=== PATIENT | female | born 1955 | race Caucasian/White ===

== ENCOUNTER → 2022-05-23 | Outpatient (CLI) | payer MEDICARE, SELFPAY ==
--- NOTE | 2022-05-23 16:37 | RAD_ITS ---
INDICATION: PAIN EXAMINATION/TECHNIQUE: X-RAY - XR Spine Cervical 2 or 3 Views: AP, lateral and open-mouth odontoid views COMPARISON: None. FINDINGS: Straightening and slight reversal of cervical lordosis likely chronic and/or positional in nature. No significant spondylolisthesis. No acute fracture or suspicious osseous lesion. Vertebral body heights are preserved. Multilevel endplate osteophytes. Mild degenerative disc space narrowing at C5-6 and C6-7. Multilevel mild degenerative facet arthropathy. Scattered vascular calcifications. Previous sternotomy and CABG. Biapical lung scarring. RAD/Cerv Spine 2 or 3 Views IMPRESSION: Mild cervical spondylosis.. Electronically Signed: Micah Pang MD at 2:38 EDT ,
--- NOTE | 2022-05-23 16:40 | RAD_ITS ---
INDICATION: PAIN EXAMINATION/TECHNIQUE: X-RAY - XR Spine Lumbar 2 or 3 Views: AP and lateral views COMPARISON: None. FINDINGS: Chronic-appearing lower thoracic and L1 vertebral endplate compression deformities. Mild dextroscoliotic curvature of thoracolumbar spine. Bones are osteopenic. Chronic-appearing grade 1 anterolisthesis of L4 over L5. Multilevel degenerative facet arthropathy. Multiple metallic clips within pelvis. Chronic left pubic rami fractures. Status post left hip arthroplasty. Aortoiliac atherosclerotic calcifications present. RAD/Lumbar Spine 2 or 3 Views IMPRESSION: Chronic-appearing lower thoracic and L1 vertebral endplate compression deformities. Multilevel lumbar facet arthropathy with grade 1 spondylolisthesis L4 over L5. Mild thoracolumbar dextroscoliotic curvature. Other nonurgent findings within body of report. Electronically Signed: Micah Pang MD at 2:36 EDT ,
[2022-05-23 17:26] LABS: Amphetamine Urine VISTA NEGATIVE (<1000 ng/mL); Barbiturate Urine VISTA NEGATIVE (< 200 ng/mL); Benzodiazepine Urine VISTA NEGATIVE (< 200 ng/mL); Cocaine Urine VISTA NEGATIVE (< 300 ng/mL); Ecstacy Urine VISTA NEGATIVE (< 500 ng/mL); Methadone Urine VISTA NEGATIVE (< 300 ng/mL); PCP Urine VISTA NEGATIVE (< 25 ng/mL); THC Urine VISTA NEGATIVE (< 50 ng/mL)
[2022-05-23 17:27] LABS: Vista UDS pH Range 4
== END | disposition home or self-care (01) ==
PROVIDERS: PCP Family Medicine; Visit Provider Anesthesiology Pain Medicine
DX: M54.30 Sciatica, unspecified side (principal); F11.20 Opioid dependence, uncomplicated
CPT/HCPCS: 72040; 72100; 80307

== ENCOUNTER → 2022-07-19 | Outpatient (CLI) | payer MEDICARE, MEDICAID, SELFPAY ==
--- NOTE | 2022-07-19 15:32 | RAD_ITS ---
EXAM: XR LUMBOSACRAL SPINE, 2 OR 3 VIEWS CLINICAL INDICATION: Lumbar region intervertebral disc degeneration. TECHNIQUE: Frontal and lateral views of the lumbar spine and sacrum. This report was created using [employer] report [employer] technology. COMPARISON: None. FINDINGS: VERTEBRAE: Mild old anterior wedge compression fractures of the upper T12 and L1 vertebral bodies. Normal remaining lumbar vertebral body heights and endplates. Minimal degenerative retrolisthesis of L2 on L3. Minimal degenerative anterolisthesis of L4 on L5. No spondylolisthesis. Preservation of the normal lumbar lordosis. No significant facet arthropathy. DISC SPACES: Normal lumbar disc space heights. SOFT TISSUES: Multiple surgical clips in the pelvis. VASCULATURE: Moderate calcified plaques along the abdominal aorta. GASTROINTESTINAL TRACT: Unremarkable as visualized. Included bowel gas pattern is non-obstructive. RAD/Lumbar Spine 2 or 3 Views IMPRESSION: 1. No lumbar degenerative disc space height narrowing. 2. Old mild anterior wedge compression fractures of the upper T12 and L1 vertebral bodies. 3. Minimal degenerative retrolisthesis of L2 on L3 and minimal degenerative anterolisthesis of L4 on L5. 4. No acute osseous abnormality of the lumbar spine.. Electronically Signed: Kali De León MD at 16:32 EDT ,
--- NOTE | 2022-07-19 15:35 | RAD_ITS ---
STUDY: X-RAY - PELVIS AND RIGHT HIP REASON FOR EXAM: Female, 66 years old. Other intervertebral disc degeneration, lumbar region TECHNIQUE: 3 views of the pelvis and hip. COMPARISON: None. FINDINGS: There is a non-specific bowel gas pattern. Normal visualized soft tissue structures. Normal bilateral iliac wings, sacroiliac joints and visualized sacrum. Normal bilateral superior and inferior pubic rami. Normal pubic symphysis. Normal bilateral ischial tuberosities. Normal visualized femoral head. Normal acetabulum. Normal hip joint. RAD/HIP, UNI W/ Pelvis 2-3 Views IMPRESSION: Normal x-ray examination of the pelvis and hip. Electronically Signed: Yemi Delgadillo MD at 0:18 EDT ,
== END | disposition home or self-care (01) ==
LOC: RAD 15:31
PROVIDERS: PCP Family Medicine; Referring Provider Anesthesiology Pain Medicine; Visit Provider Anesthesiology Pain Medicine
DX: M51.36 Other intervertebral disc degeneration, lumbar region (principal)
CPT/HCPCS: 72100; 73502

== ENCOUNTER → 2023-06-30 | Outpatient (CLI) | payer MEDICARE, MEDICAID, SELFPAY ==
[2023-06-30 17:19] LABS: Amphetamine Urine VISTA NEGATIVE (<1000 ng/mL); Barbiturate Urine VISTA NEGATIVE (< 200 ng/mL); Benzodiazepine Urine VISTA NEGATIVE (< 200 ng/mL); Cocaine Urine VISTA NEGATIVE (< 300 ng/mL); Ecstacy Urine VISTA NEGATIVE (< 500 ng/mL); Methadone Urine VISTA NEGATIVE (< 300 ng/mL); PCP Urine VISTA NEGATIVE (< 25 ng/mL); THC Urine VISTA NEGATIVE (< 50 ng/mL); Vista UDS pH Range 5
== END | disposition home or self-care (01) ==
PROVIDERS: PCP Family Medicine; Referring Provider Anesthesiology Pain Medicine; Visit Provider Anesthesiology Pain Medicine
DX: F11.20 Opioid dependence, uncomplicated (principal)
CPT/HCPCS: 80307

== ENCOUNTER → 2023-11-19 | Outpatient (CLI) | payer MEDICARE, MEDICAID, SELFPAY ==
--- NOTE | 2023-11-19 17:30 | RAD_ITS ---
STUDY: X-RAY - THORACIC SPINE REASON FOR EXAM: Female, 68 years old. FALL TECHNIQUE: 3 view(s) of the thoracic spine were obtained. COMPARISON: Lumbar spine x-rays 05/23/2022. FINDINGS: There is increased kyphosis at thoracolumbar junction. There is wedging of T11, T12 and L1 suggestive of mild compression fracture, exact age indeterminate and likely old given morphology and stability since 05/23/2022 exam. Mild scoliosis of thoracolumbar spine with convexity to the right. There is demineralization of the thoracic spine with endplate spondylosis. There is multilevel disc space narrowing of the thoracic spine. Calcified atherosclerotic disease throughout the aorta. Midline sternotomy wires. RAD/Thoracic Spine 2 Views IMPRESSION: Diffuse osteopenia with degenerative disease as described. Scoliosis of thoracolumbar spine with convexity to the right. Old compression fractures T11-L1, stable in the interval. Electronically Signed: Jenny Vigil MD at 18:31 EST ,
--- OUTSIDE RECORDS SUMMARY | 2023-11-19 17:40 | XMS RPT_ITS | CCD ---
Author Name Unknown Address [address] [place] [address] Organization [facility] Care Team Providers Care Taxicab Coordinator Name Role Phone Yang Bridges Unavailable Mansfield, Robert A Unavailable Unavailable Mansfield, Robert A Unavailable Unavailable Yang Bridges Primary Care Provider [phone] Yang Bridges Primary Care Provider MANSFIELD, ROBERT ESTEBAN Attending Unavailable MANSFIELD, ROBERT ESTEBAN Referring Unavailable ELDERBROCK, YANG Primary Care Unavailable MANSFIELD, ROBERT ESTEBAN Attending Unavailable MANSFIELD, ROBERT ESTEBAN Referring Unavailable ELDERBROCK, YANG Primary Care Unavailable MANSFIELD, ROBERT ESTEBAN Attending Unavailable MANSFIELD, ROBERT ESTEBAN Referring Unavailable ELDERBROCK, YANG Primary Care Unavailable MANSFIELD, ROBERT ESTEBAN Attending Unavailable MANSFIELD, ROBERT ESTEBAN Referring Unavailable ELDERBROCK, YANG Primary Care Unavailable MANSFIELD, ROBERT ESTEBAN Attending Unavailable MANSFIELD, ROBERT ESTEBAN Referring Unavailable ELDERBROCK, YANG Primary Care Unavailable MANSFIELD, ROBERT ESTEBAN Attending Unavailable MANSFIELD, ROBERT ESTEBAN Referring Unavailable ELDERBROCK, YANG Primary Care Unavailable Hal Hayden Unavailable Unavailable None, No PCP Unavailable Unavailable Hal Hayden Unavailable Unavailable Yang Bridges Unavailable Tomer Riojas Unavailable Unavailabl e Yang Bridges MD Primary Care Provider Og Fry MD Unavailable [phone] Yang Bridges MD Primary Care Provider Fry MD, Og Francisco Javier Unavailable [phone] Herminia Lowry RN Unavailable Unavailable Cyrus MOHAN, Yang Primary Care Provider Josh Valentin I Unavailable Unavailable Cyrus MOHAN, Yang Vega Primary Care Provider Herminia Lowry RN Unavailable Unavailable ELDERBROCK, YANG Primary Care Unavailable HERMINIA FISHER Referring Unavailable HERMINIA FISHER Attending Unavailable Eliana Casillas RN Unavailable Unavailable Cyrus MOHAN, Yang Vega Primary Care Provider Lisandra MOHAN, Og Francisco Javier Unavailable [phone] Eliana Casillas RN Unavailable Unavailable Herminia Lowry RN Unavailable Unavailable Hollis Servin W Unavailable Timothy Correia Unavailable Eliana Casillas RN Unavailable Unavailable Yang Bridges MD Primary Care Provider Timothy Correia Attending Unavailable Elderbrock, Yang Wong Primary Care Unavaila ble ELDERBROCK, YANG Primary Care Unavailable HERMINIA FISHER Attending Unavailable HERMINIA FISHER Admitting Unavailable FISHERHERMINIA TAN Referring Unavailable ELDERBROCK, YANG Primary Care Unavailable FISHERHERMINIA CHOE Admitting Unavailable FISHERHERMINIA TAN Referring Unavailable ELDERBROCK, YANG Primary Care Unavailable FISHERHERMINIA CHOE Admitting Unavailable FISHERHERMINIA TAN Referring Unavailable ELDERBROCK, YANG Primary Care Unavailable FISHERHERMINIA TAN Attending Unavailable ELDERBROCK, YANG Primary Care Unavailable ROBERT MANSFIELD Attending Unavailable ELDERBROCK, YANG Primary Care Unavailable FISHERHERMINIA Attending Unavailable ELDERBROCK, YANG Primary Care Unavailable FISHERHERMINIA TAN Admitting Unavailable FISHERHERMINIA Referring Unavailable ELDERBROCK, YANG Primary Care Unavailable FISHERHERMINIA TAN Attending Unavailable ELDERBROCK, YANG Primary Care Unavailable FISHERHERMINIA TAN Admitting Unavailable ELDERBROCK, YANG Primary Care Unavailable FISHERHERMINIA Referring Unavailable ELDERBROCK, YANG Primary Care Unavailable FISHERHERMINIA TAN Attending Unavailable FISHER, HERMINIA WESTFALL Admitting Unavailable FISHER, HERMINIA WESTFALL Referring Unavailable ELDERBROCK, YANG Primary Care Unavailable FISHER, HERMINIA WESTFALL Attending Unavailable ELDERBROCK, YANG Primary Care Unavailable MANSFIELD, ROBERT ORELLANA Attending Unavailable MANSFIELD, ROBERT ORELLANA Admitting Unavailable ELDERBROCK, YANG Primary Care Unavailable FISHER, HERMINIA WESTFALL Admitting Unavailable FISHER, HERMINIA WESTFALL Referring Unavailable ELDERBROCK, YANG Primary Care Unavailable ELDERBROCK, YANG Primary Care Unavailable FISHER, HERMINIA WESTFALL Attending Unavailable FISHER, HERMINIA WESTFALL Admitting Unavailable FISHER, HERMINIA WESTFALL Referring Unavailable ELDERBROCK, YANG Primary Care Unavailable Mendez, Dr. Raymond Morgan Referring Unavai lable Elderbrock, Dr. Yang Wong Primary Care Unav ailable Andrea, Dr. Raymond Morgan Admitting Unavai lable Mendez, Dr. Raymond Morgan Attending Unavai lable Mendez, Dr. Raymond Morgan Attending Unavai lable Mendez, Dr. Raymond Morgan Referring Unavai lable Elderbrock, Dr. Yang Wong Primary Care Unav ailable Andrea, Dr. Raymond Morgan Admitting Unavai lable Elderbrock, Dr. Yang Wong Primary Care Unav ailable MOOMAW, RESERVOIR ENGINEERING MANAGER JOSH KELLI Attending Unavailable Elderbrock, Dr. Yang Wong Primary Care Unav ailable Malathi, Dr. Hollis Whelan Attending Unavail able Elderbrock, Dr. Yang Wong Primary Care Unav ailable Harish, Dr. Yemi Vega Attending Unavaila ble Fredi Perez Unavailable Dawood RN, Crystal Unavailable Fredi Perez Unavailable Dawood MARC, Crystal Unavailable Fredi Perez MD Unavailable Belinda Lama MD Unavailable Robert MARC, Janelle Unavailable Unavailable YANG BRIDGES Attending Unavailable YANG BRIDGES Primary Care Unavailable BELINDA LAMA Attending Unavailable YANG BRIDGES Primary Care Unavailable BELINDA LAMA Referring Unavailable YANG BRIDGES Primary Care Unavailable MENDEZ, RAYMOND K Referring Unavailable DAMARIS MENDEZINDER K Attending Unavailable YANG BRIDGES Primary Care Unavailable MENDEZ, RAYMOND K Referring Unavailable RAYMOND MENDEZ K Attending Unavailable YANG BRIDGES Attending Unavailable YANG BRIDGES Primary Care Unavailable BELINDA LAMA Attending Unavailable YANG BRIDGES Primary Care Unavailable ANDREA, RAYMOND K Referring Unavailable RAYMOND MENDEZ K Attending Unavailable YANG BRIDGES Primary Care Unavailable YANG BRIDGES Primary Care Unavailable YANG BRIDGES Referring Unavailable Allergies Allergy Classification Reported Allergen(s) Allergy Type Date of Onset Reaction(s) Facility Macrolides (antibiotic) (2 sources) Erythromycin Drug Allergy Swelling/Edema [facility] Penicillins (antibiotic) (2 sources) Penicillin Drug Allergy Rash [facility] (20 sources) azithromycin; Translations: [AZITHROMYCIN] Propensity to adverse reactions to drug 6 [facility] Work Phone: (20 sources) erythromycin; Translations: [ERYTHROMYCIN] Propensity to adverse reactions to drug 7 Hives [facility] Work Phone: (20 sources) Penicillins; Translations: [PENICILLINS] Propensity to adverse reactions to drug 7 [facility] Work Phone: (4 sources) Penicillins; Translations: [Penicillins] Allergy to drug (finding) Rash [facility] [address] Work Phone: (2 sources) Erythromycin Derivatives Allergy to drug (finding) [facility] [address] Work Phone: (20 sources) Penicillins Propensity to adverse reactions 7 [facility] (20 sources) Penicillins Propensity to adverse reactions 7 [facility] Medications Current Medications Medication Drug Class(es) Dates Sig (Normalized) Sig (Original) acetaminophen 325 mg / oxyCODONE hydrochloride 10 mg oral tablet (4 sources) Opioid Agonist Start: 11-20-2015 oxyCODONE-acetamino phen (PERCOCET) 10-325 mg per tablet ascorbic acid 250 mg oral tablet (6 sources) Vitamin C take 1 tablet by mouth once daily Vitamin C 250 mg oral tablet ; 1 tab(s) orally once a day Quantity: 0 Refills: 0 Ordered: 02-Oct-2020 Ethel Strickland Generic Substitution Allowed Completed/Discontinued Medications Medication Drug Class(es) Dates Sig (Normalized) Sig (Original) 60 actuat albuterol 0.09 mg/actuat metered dose inhaler (2 sources) beta2-Adrenergic Agonist Albuterol Sulfate HFA 108 MCG/ACT AERS Refills: 0 Active alendronic acid 70 mg oral tablet (20 sources) Bisphosphonate Start: 05-12-2023 alendronate (FOSAMAX) 70 mg tablet Indications: Osteoporosis without current pathological fracture, unspecified osteoporosis type TAKE 1 TABLET ONE TIME WEEKLY 12 tablet 3 05/12/2023 Active Problems Active Problems Problem Classification Problem Date Documented Date Episodic/Chronic Anxiety disorders (20 sources) Anxiety state; Translations: [Generalized anxiety disorder] Onset: 07-28-2007 11-05-2021 Chronic Cancer of breast (20 sources) Intraductal carcinoma in situ of left breast; Translations: [Intraductal carcinoma in situ of left breast] Onset: 02-07-2022 Chronic Cancer of breast (2 sources) Personal history of malignant neoplasm of breast; Translations: [History of malignant neoplasm of breast] Onset: 10-31-2022 09-10-2023 Episodic Cancer of cervix (20 sources) Malignant tumor of cervix; Translations: [Malignant neoplasm of cervix uteri, unspecified] 11-05-2021 Chronic Cataract (20 sources) Senile combined form cataract of right eye; Translations: [Combined forms of age-related cataract, right eye] Onset: 07-08-2022 Chronic Chronic obstructive pulmonary disease and bronchiectasis (20 sources) Chronic obstructive lung disease; Translations: [Chronic obstructive pulmonary disease, unspecified] Onset: 12-02-2020 Chronic Complication of device; implant or graft (20 sources) Arteriosclerosis of coronary artery bypass graft; Translations: [Atherosclerosis of coronary artery bypass graft(s) without angina pectoris] Onset: 04-28-2016 04-28-2016 Chronic Complication of device; implant or graft (1 source) Periprosthetic fracture; Translations: [Rashida-prosthetic fracture around prosthetic joint] 07-29-2022 Episodic Coronary atherosclerosis and other heart disease (20 sources) Coronary atherosclerosis; Translations: [Atherosclerotic heart disease of [place] coronary artery without angina pectoris] Onset: 12-02-2011 Chronic Disorders of lipid metabolism (20 sources) Hyperlipidemia; Translations: [Hyperlipidemia, unspecified] Onset: 12-07-2011 Chronic E Codes: Fall (5 sources) Fall 06-06-2021 Past or Other Problems Problem Classification Problem Date Documented Da te Episodic/Chronic Abdominal pain (2 sources) Unspecified abdominal pain; Translations: [Unspecified abdominal pain] Onset: 10-14-2022 Episodic Allergic reactions (2 sources) Inflammatory dermatosis; Translations: [Dermatitis, unspecified] Onset: 10-31-2022 Episodic Blindness and vision defects (20 sources) Visual field defect; Translations: [Unspecified visual field defects] Onset: 07-26-2022 Episodic Cancer of cervix (1 source) Personal history of malignant neoplasm of cervix uteri; Translations: [Personal history of malignant neoplasm of cervix uteri] Onset: 07-25-2022 Episodic Cancer of uterus (1 source) Personal history of malignant neoplasm of other parts of uterus; Translations: [Personal history of malignant neoplasm of oth prt uterus] Onset: 10-31-2022 Episodic Complications of surgical procedures or medical care (1 source) Periprosthetic fracture around internal prosthetic left hip joint, initial encounter; Translations: [Periprosth fracture around internal prosth l hip jt, init] Onset: 07-29-2022 Episodic Coronary atherosclerosis and other heart disease (1 source) Presence of coronary angioplasty implant and graft; Translations: [Presence of coronary angioplasty implant and graft] Onset: 10-31-2022 Episodic E Codes: Fall (2 sources) Fall; Translations: [Unspecified fall] Onset: 07-29-2022 06-07-2021 Episodic Fluid and electrolyte disorders (1 source) Hypokalemia; Translations: [Hypokalemia] Onset: 09-25-2022 Episodic Fracture of lower limb (20 sources) Closed fracture of tibial plateau; Translations: [Closed fracture proximal tibia, medial condyle (plateau) ] Onset: 12-02-2020 11-30-2021 Episodic Fracture of neck of femur (hip) (6 sources) Fracture of proximal end of femur; Translations: [Fracture of unspecified part of neck of left femur, initial encounter for closed fracture] Onset: 09-11-2022 Episodic Nutritional deficiencies (20 sources) Alteration in nutrition: less than body requirements; Translations: [Other specified nutritional deficiencies] Onset: 11-05-2011 Episodic Other aftercare (2 sources) Encounter for follow-up examination after completed treatment for conditions other than malignant neoplasm; Translations: [Encounter for follow-up examination after completed treatment for conditions other than malignant neoplasm] Onset: 09-11-2022 Episodic Other aftercare (1 source) snf (current) use of aspirin; Translations: [snf (current) use of aspirin] Onset: 10-31-2022 Episodic Other aftercare (1 source) Other terminal make up operator (current) drug therapy; Translations: [Other nursing home (current) drug therapy] Onset: 10-14-2022 Episodic Other connective tissue disease (5 sources) Pain in upper limb; Translations: [Pain in right upper arm] Onset: 03-07-2017 03-07-2017 Episodic Other connective tissue disease (4 sources) Pain in right arm; Translations: [Pain in right upper arm] Onset: 03-07-2017 03-07-2017 Episodic Other connective tissue disease (20 sources) Pain in right upper arm; Translations: [Pain of right upper arm] Onset: 03-07-2017 03-07-2017 Episodic Other connective tissue disease (20 sources) Muscle pain; Translations: [Myalgia and myositis, unspecified] Onset: 09-21-2008 12-06-2011 Episodic Other connective tissue disease (20 sources) Ischial bursitis ; Translations: [Other bursitis of hip, unspecified hip] Onset: 01-27-2014 01-27-2014 Episodic Other connective tissue disease (20 sources) Pain in buttock; Translations: [Myalgia, other site] Onset: 01-27-2014 01-27-2014 Episodic Other connective tissue disease (20 sources) Right rotator cuff syndrome; Translations: [Unspecified rotator cuff tear or rupture of right shoulder, not specified as traumatic] Onset: 08-28-2015 08-28-2015 Episodic Other connective tissue disease (20 sources) Biceps tendinitis; Translations: [Bicipital tendinitis, right shoulder] Onset: 08-28-2015 08-28-2015 Episodic Other connective tissue disease (1 source) Fibromyalgia; Translations: [Fibromyalgia] Onset: 10-31-2022 Episodic Other connective tissue disease (2 sources) Cramp and spasm; Translations: [Cramp and spasm] Onset: 09-25-2022 Episodic Other eye disorders (20 sources) Tear film insufficiency; Translations: [Dry eye syndrome of bilateral lacrimal glands] Onset: 07-08-2022 Episodic Other eye disorders (20 sources) H/O: L cataract extraction; Translations: [Cataract extraction status, left eye] Onset: 07-26-2022 Episodic Other eye disorders (20 sources) H/O: R cataract extraction; Translations: [Cataract extraction status, right eye] Onset: 11-01-2022 Episodic Other gastrointestinal disorders (2 sources) Diarrhea, unspecified; Translations: [Diarrhea, unspecified] Onset: 10-14-2022 Episodic Other injuries and conditions due to external causes (20 sources) Finding with explicit context; Translations: [Personal history of other (healed) physical injury and trauma] Onset: 07-26-2022 Episodic Other non-traumatic joint disorders (20 sources) Pain in elbow; Translations: [Pain in left ankle and joints of left foot] Onset: 09-04-2016 09-04-2016 Episodic Other non-traumatic joint disorders (20 sources) Pain in left ankle and joints of left foot; Translations: [Acute ankle pain] Onset: 02-04-2018 02-04-2018 Episodic Other non-traumatic joint disorders (20 sources) Shoulder pain; Translations: [Pain in right shoulder] Onset: 09-04-2016 09-04-2016 Episodic Other non-traumatic joint disorders (15 sources) Pain in right shoulder; Translations: [Chronic pain of right upper limb] Onset: 09-16-2017 09-16-2017 Episodic Other non-traumatic joint disorders (1 source) Pain in left hip; Translations: [Pain in left hip] Onset: 07-29-2022 Episodic Other screening for suspected conditions (not mental disorders or infectious disease) (20 sources) Patient encounter status; Translations: [Encounter for screening for malignant neoplasm of colon] Onset: 03-11-2018 03-11-2018 Episodic Rashida-; endo-; and myocarditis; cardiomyopathy (except that caused by tuberculosis or sexually transmitted disease) (20 sources) Pericarditis; Translations: [Disease of pericardium, unspecified] Onset: 03-17-2012 03-17-2012 Episodic Residual codes; unclassified (20 sources) Tobacco user; Translations: [Tobacco use] Onset: 02-07-2022 Episodic Residual codes; unclassified (1 source) Acquired absence of unspecified breast and nipple; Translations: [Acquired absence of unspecified breast and nipple] Onset: 10-31-2022 Episodic Residual codes; unclassified (2 sources) Chills (without fever); Translations: [Chills (without fever)] Onset: 09-25-2022 Episodic Screening and history of mental health and substance abuse codes (20 sources) H/O: anxiety state; Translations: [H/O: depression] Onset: 11-30-2021 11-30-2021 Episodic Spondylosis; intervertebral disc disorders; other back problems (20 sources) Neck pain; Translations: [Lumbosacral neuritis] Onset: 01-27-2014 09-04-2016 Episodic Sprains and strains (20 sources) Sprain of unspecified ligament of right ankle, initial encounter; Translations: [Sprain of shoulder rotator cuff] Onset: 06-25-2013 02-04-2018 Episodic Unclassified (1 source) Tear of right rotator cuff, unspecified tear extent NEGATED: Highlighted row has not occurred!Residual codes; unclassified (3 sources) Disease Episodic Results Test Name Value Interpretation Reference Range Facil ity Vital Signs Date Time Vital Sign Value Performing Clinician Facility 09-22-2023 15:15-0500 Body weight 43.09 kg Yang Bridges MD Work Phone: [facility] 09-22-2023 15:15-0500 Diastolic blood pressure 72 mm[Hg] Yang Bridges MD Work Phone: [facility] 09-22-2023 15:15-0500 Heart rate 70 /min Yang Bridges MD Work Phone: [facility] 09-22-2023 15:15-0500 Respiratory rate 18 /min Yang Bridges MD Work Phone: [facility] 09-22-2023 15:15-0500 Systolic blood pressure 126 mm[Hg] Yang Bridges MD Work Phone: [facility] 09-10-2023 10:02-0400 Body height 160 cm Belinda Lama MD Work Phone: [facility] 09-10-2023 10:02-0400 Body temperature 98.91 [degF] Belinda Lama MD Work Phone: [facility] 09-10-2023 10:02-0400 Body weight 44.45 kg Belinda Lama MD Work Phone: [facility] 09-10-2023 10:02-0400 Diastolic blood pressure 69 mm[Hg] Belinda Lama MD Work Phone: [facility] 09-10-2023 10:02-0400 Heart rate 60 /min Belinda Lama MD Work Phone: [facility] 09-10-2023 10:02-0400 Respiratory rate 14 /min Belinda Lama MD Work Phone: [facility] 09-10-2023 10:02-0400 SaO2% (BldA) [Mass fraction] 99 % Belinda Lama MD Work Phone: [facility] 09-10-2023 10:02-0400 Systolic blood pressure 144 mm[Hg] Belinda Lama MD Work Phone: [facility] 04-29-2023 15:36-0400 Body height 160 cm Yang Bridges MD Work Phone: [facility] 04-29-2023 15:36-0400 Body weight 47.54 kg Yang Bridges MD Work Phone: [facility] 04-29-2023 15:36-0400 Diastolic blood pressure 76 mm[Hg] Yang Bridges MD Work Phone: [facility] 04-29-2023 15:36-0400 Heart rate 72 /min Yang Bridges MD Work Phone: [facility] 04-29-2023 15:36-0400 Respiratory rate 16 /min Yang Bridges MD Work Phone: [facility] 04-29-2023 15:36-0400 Systolic blood pressure 128 mm[Hg] Yang Bridges MD Work Phone: [facility] 03-10-2023 16:10-0400 Body temperature 97.11 [degF] Belinda Lama MD Work Phone: [facility] 03-10-2023 16:10-0400 Body weight 46.86 kg Belinda Lama MD Work Phone: [facility] 03-10-2023 16:10-0400 Diastolic blood pressure 60 mm[Hg] Belinda Lama MD Work Phone: [facility] 03-10-2023 16:10-0400 Heart rate 66 /min Belinda Lama MD Work Phone: [facility] 03-10-2023 16:10-0400 Respiratory rate 18 /min Belinda Lama MD Work Phone: [facility] 03-10-2023 16:10-0400 SaO2% (BldA) [Mass fraction] 99 % Belinda Lama MD Work Phone: [facility] 03-10-2023 16:10-0400 Systolic blood pressure 124 mm[Hg] Belinda Lama MD Work Phone: [facility] 10-22-2022 13:19-0500 Diastolic blood pressure 65 mm[Hg] Raymond Mendez MD Work Phone: [facility] 10-22-2022 13:19-0500 Heart rate 52 /min Raymond Mendez MD Work Phone: [facility] 10-22-2022 13:19-0500 Systolic blood pressure 99 mm[Hg] Raymond Mendez MD Work Phone: [facility] 10-14-2022 23:57-0500 Diastolic blood pressure 68 mm[Hg] Yang Bridges Other Phone: [facility] 10-14-2022 23:57-0500 Heart rate 87 /min Yang Bridges Other Phone: [facility] 10-14-2022 23:57-0500 Respiratory rate 17 /min Yang Bridges Other Phone: [facility] 10-14-2022 23:57-0500 SaO2% (BldA) [Mass fraction] 95 % Yang Bridges Other Phone: [facility] 10-14-2022 23:57-0500 Systolic blood pressure 112 mm[Hg] Yang Bridges Other Phone: [facility] 10-14-2022 20:25-0500 Body height 162.5 cm Yang Bridges Other Phone: [facility] 10-14-2022 20:25-0500 Body weight 43.9 kg Yang Bridges Other Phone: [facility] 08-21-2022 15:44-0400 Body height 160 cm Belinda Lama MD Work Phone: [facility] 08-21-2022 15:44-0400 Body temperature 98.01 [degF] Belinda Lama MD Work Phone: [facility] 08-21-2022 15:44-0400 Body weight 46.45 kg Belinda Lama MD Work Phone: [facility] 08-21-2022 15:44-0400 Diastolic blood pressure 54 mm[Hg] Belinda Lama MD Work Phone: [facility] 08-21-2022 15:44-0400 Heart rate 52 /min Belidna Lama MD Work Phone: [facility] 08-21-2022 15:44-0400 Respiratory rate 20 /min Belinda Lama MD Work Phone: [facility] 08-21-2022 15:44-0400 SaO2% (BldA) [Mass fraction] 99 % Belinda Lama MD Work Phone: [facility] 08-21-2022 15:44-0400 Systolic blood pressure 103 mm[Hg] Belinda Lama MD Work Phone: [facility] 07-31-2022 09:22-0400 Body height 163.8 cm Herminia Fisher CNP Work Phone: [facility] 07-31-2022 09:22-0400 Body mass index (BMI) [Ratio] 18.25 kg/m2 Herminia Fisher RESERVOIR ENGINEERING MANAGER Work Phone: [facility] 07-31-2022 09:22-0400 Body weight 48.99 kg Herminia Fisher RESERVOIR ENGINEERING MANAGER Work Phone: [facility] 07-26-2022 16:20-0400 Diastolic blood pressure 65 mm[Hg] Raymond Mendez MD Work Phone: [facility] 07-26-2022 16:20-0400 Heart rate 52 /min Raymond Mendez MD Work Phone: [facility] 07-26-2022 16:20-0400 Systolic blood pressure 99 mm[Hg] Raymond Mendez MD Work Phone: [facility] 07-22-2022 14:08-0400 Diastolic blood pressure 65 mm[Hg] Raymond Mendez MD Work Phone: [facility] 07-22-2022 14:08-0400 Heart rate 52 /min Raymond Mendez MD Work Phone: [facility] 07-22-2022 14:08-0400 Systolic blood pressure 99 mm[Hg] Raymond Mendez MD Work Phone: [facility] 07-08-2022 13:29-0400 Diastolic blood pressure 65 mm[Hg] Raymond Mendez MD Work Phone: [facility] 07-08-2022 13:29-0400 Heart rate 52 /min Raymond Mendez MD Work Phone: [facility] 07-08-2022 13:29-0400 Systolic blood pressure 99 mm[Hg] Raymond Mendez MD Work Phone: [facility] 06-26-2022 14:06-0400 Body height 163.8 cm Robert Mansfield MD Work Phone: [facility] 06-26-2022 14:06-0400 Body mass index (BMI) [Ratio] 18.25 kg/m2 Robert Mansfield MD Work Phone: [facility] 06-26-2022 14:06-0400 Body weight 48.99 kg Robert Mansfield MD Work Phone: [facility] 06-26-2022 14:06-0400 Diastolic blood pressure 60 mm[Hg] Robert Mansfield MD Work Phone: [facility] 06-26-2022 14:06-0400 Heart rate 60 /min Robert Mansfield MD Work Phone: [facility] 06-26-2022 14:06-0400 SaO2% (BldA) [Mass fraction] 91 % Robert Mansfield MD Work Phone: [facility] 06-26-2022 14:06-0400 Systolic blood pressure 104 mm[Hg] Robert Mansfield MD Work Phone: [facility] 04-23-2022 16:23-0400 Body weight 47.13 kg Yang Bridges MD Work Phone: [facility] 04-23-2022 16:23-0400 Diastolic blood pressure 60 mm[Hg] Yang Bridges MD Work Phone: [facility] 04-23-2022 16:23-0400 Heart rate 74 /min Yang Bridges MD Work Phone: [facility] 04-23-2022 16:23-0400 Respiratory rate 16 /min Yang Bridges MD Work Phone: [facility] 04-23-2022 16:23-0400 Systolic blood pressure 90 mm[Hg] Yang Bridges MD Work Phone: [facility] 02-28-2022 13:25-0400 Body temperature 98.4 [degF] Belinda Lama MD Work Phone: [facility] 02-28-2022 13:25-0400 Diastolic blood pressure 69 mm[Hg] Belinda Lama MD Work Phone: [facility] 02-28-2022 13:25-0400 Heart rate 108 /min Belinda Lama MD Work Phone: [facility] 02-28-2022 13:25-0400 Respiratory rate 20 /min Belinda Lama MD Work Phone: [facility] 02-28-2022 13:25-0400 SaO2% (BldA) [Mass fraction] 98 % Belinda Lama MD Work Phone: [facility] 02-28-2022 13:25-0400 Systolic blood pressure 134 mm[Hg] Belinda Lama MD Work Phone: [facility] 02-07-2022 13:36-0400 Body height 162.6 cm Pacc 4 Work Phone: [facility] 02-07-2022 13:36-0400 Body temperature 98.49 [degF] Pacc 4 Work Phone: [facility] 02-07-2022 13:36-0400 Body weight 49.08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 [J44.9] Order(s):PT ED PULMONARY [[id number]] Order #: [id number]: 1 Prescriptions as of 11/19/2022 - moxifloxacin (VIGAMOX) 0.5 % ophthalmic solution Use 1 Drop in the right eye four times daily. - keTORolac (ACULAR) 0.5 % ophthalmic solution Use 1 Drop in the right eye four times daily. - prednisoLONE acetate (PRED FORTE) 1 % ophthalmic suspension Use 1 Drop in the right eye four times daily. - omeprazole (PRILOSEC) 20 mg capsule Take 1 capsule by mouth once daily. - doxepin capsule 25 mg Take 1 capsule by mouth daily at bedtime. - baclofen (LIORESAL) 10 mg tablet Take 1 tablet by mouth three times daily as needed (muscle spasms). - sertraline (ZOLOFT) 100 mg tablet Take 1 tablet by mouth once daily. - lisinopril 2.5 mg tablet Take 1 tablet by mouth once daily. - rOPINIRole (REQUIP) 0.5 mg tablet Take 1 tablet by mouth daily at bedtime. - alendronate (FOSAMAX) 70 mg tablet TAKE 1 TABLET ONE TIME WEEKLY - oxyCODONE IR (ROXICODONE) 5 mg immediate release tablet Take 1 tablet by mouth every 8 hours as needed for pain. - oxyCODONE IR (ROXICODONE) 5 mg immediate release tablet Take 1 tablet by mouth once daily as needed for pain for up to 30 days. Do not start before February 07, 2022. - pregabalin (LYRICA) 75 mg capsule Take one pill at night for one week, then add one pill in the morning for one week, then take on pill 3 times per day thereafter - fentaNYL (DURAGESIC) 50 mcg/hr Apply 1 Patch as directed every 72 hours for 30 days. Do not start before March 09, 2022. - fentaNYL (DURAGESIC) 50 mcg/hr Apply 1 Patch as directed every 72 hours for 30 days. Do not start before February 07, 2022. - gabapentin (NEURONTIN) 600 mg tablet Take 1 pill 3 times per day - oxyCODONE IR (ROXICODONE) 5 mg immediate release tablet Take 1 tablet by mouth twice daily as needed for pain for up to 30 days. Do not start before January 06, 2022. - oxyCODONE IR (ROXICODONE) 5 mg immediate release (more content not included)... [facility] 11-19-2022 Note HNO ID: [id number] Author: Eliana Casillas RN Service: ? Author Type: Registered Nurse Type: Progress Notes Filed: 11/19/2022 1:29 PM Note Text: [facility] TELEPHONIC OUTREACH Provider Action/FYI: Next PCP Visit: TBD at later date per patient's request ADLs, Fall Risk Assessment AND Goal updated COPD JACLYN sent Healthy at Home [employer] message sent Contact made with patient: Yes Patient identified by name and . Discussed care with patient It?s nice talking to you again. As a reminder, this is our check-in where I will be asking you questions about your health. This will only take a few minutes of your time. Is this a good time? Yes Symptoms What Chronic Disease(s) does the patient have: COPD Do you check your blood pressures at home? No Do you have new or worse shortness of breath with activity? No Do you have new or worsening cough? No Do you have new or worsening wheezing? No Do you need to use your rescue (Albuterol) inhaler or nebulizer more often than normal? No Are you having any other symptoms that your PCP needs to know about? No Symptoms: none Symptom Escalation JACLYN Education Ordered -: Yes - COPD The patient required an escalation for symptom(s)? No Medications Do you have any questions about taking your medication or which medications you should be on? No Do you need any medication refills at this time, including any of the medications you might take only when needed? No Social We would like to make sure you have what you need so that your basic needs are met- including your personal safety, food, housing and medications? Would you like to speak with a social work service team leader to help give you support for any of these needs? No It can be normal to feel anxious or down during a time like this. Would you like to talk to a mental health professional about how you have been feeling? No Closing Thank you for taking the time to talk with me today. We want to work with you to ensure that we are keeping your medical condition(s) well-controlled and to keep you healthy and out of the doctor's office or hospital. It?s also not too late for me to sign you up for automated weekly questionnaires through [employer]. This is an easy way for us to stay connected each week. Are you interested? No WANDA BtucherN, BA, whip operatorBusiness Objects Developer November 19, 2022 1:28 PM [facility] 11-19-2022 History of Present illness Narrative [facility] [address] [facility] [address] [facility] [id number] Maricel Azar returns to the office today for left elbow pain. A little over a week ago the patient had a fall, landing directly on the left elbow. She reports continued pain as well as bruising from the elbow down to her wrist. She also reports some decreased range of motion mostly due to pain. She has been trying to use the right arm to help the left wrist. She denies any numbness or tingling down the arm into the hands or the fingers. She states she did not plan on coming in for further evaluation but thought she should considering she has not had much improvement with her pain. The patient's past medical history, surgical history, social history, family history, medications and allergies were reviewed with the patient today and are available in the chart for further review. Allergies Allergen Reactions Azithromycin Erythromycin Penicillins Current Outpatient Medications: alendronate (FOSAMAX) 70 MG tablet, Take 1 tablet by mouth 1 time weekly, Disp: , Rfl: 11 aspirin 81 MG EC tablet, Take 2 (two) tablets (162 mg total) by mouth daily ., Disp: , Rfl: baclofen (LIORESAL) 10 MG tablet, Take 1 (one) tablet (10 mg total) by mouth 3 (three) times a day ., Disp: , Rfl: biotin 5 mg Tab, Take by mouth ., Disp: , Rfl: cephALEXin (KEFLEX) 500 MG capsule, Take 1 (one) capsule (500 mg total) by mouth 3 (three) times a day ., Disp: , Rfl: cholecalciferol, vitamin D3, 50 mcg (2,000 unit) cap, Take by mouth ., Disp: , Rfl: cyanocobalamin (B-12) 500 MCG tablet, Take by mouth ., Disp: , Rfl: cyclobenzaprine (FLEXERIL) 10 MG tablet, TAKE 1 TABLET BY MOUTH AT BEDTIME NEEDED for muscle spasm, Disp: , Rfl: doxepin (SINEQUAN) 10 MG capsule, Take 1 (one) capsule (10 mg total) by mouth at bedtime ., Disp: , Rfl: fentaNYL (DURAGESIC) 75 mcg/hr patch, Place 1 (one) patch on the skin ., Disp: , Rfl: gabapentin (NEURONTIN) 300 MG capsule, Take 1 (one) capsule (300 mg total) by mouth 3 (three) times a day ., Disp: , Rfl: ibuprofen (ADVIL,MOTRIN) 800 MG tablet, Take 1 (one) tablet (800 mg total) by mouth every 6 (six) hours as needed for pain ., Disp: 30 tablet, Rfl: 0 lisinopril (PRINIVIL,ZESTRIL) 2.5 MG tablet, TAKE 1 TABLET BY MOUTH EVERY DAY, Disp: , Rfl: meloxicam (MOBIC) 7.5 MG tablet, Take 1 (one) tablet (7.5 mg total) by mouth daily ., Disp: 30 tablet, Rfl: 11 meloxicam (MOBIC) 7.5 MG tablet, Take 1 (one) tablet (7.5 mg total) by mouth daily ., Disp: 30 tablet, Rfl: 11 oxyCODONE (ROXICODONE) 10 MG Tab, Take 1 (one) tablet (10 mg total) by mouth every 6 (six) hours as needed ., Disp: , Rfl: pregabalin (LYRICA) 75 MG capsule, Take one pill at night for one week, then add one pill in the morning for one week, then take on pill 3 times per day thereafter, Disp: , Rfl: rOPINIRole (REQUIP) 0.5 MG tablet, TAKE 1 TABLET BY MOUTH DAILY AT BEDTIME as needed for restless legs., Disp: , Rfl: sertraline (ZOLOFT) 100 MG tablet, Take 2 (two) tablets (200 mg total) by mouth daily ., Disp: , Rfl: 5 traMADoL (ULTRAM) 50 mg tablet, Take 1 (one) tablet to 2 (two) tablets (50-100 mg total) by mouth every 6 (six) hours as needed for pain ., Disp: , Rfl: traZODone (DESYREL) 50 MG tablet, Take 1 (one) tablet (50 mg total) by mouth nightly ., Disp: , Rfl: Past Medical History: Diagnosis Date Aortic stenosis Breast cancer (HCC) Cancer (HCC) cervical COPD (chronic obstructive pulmonary disease) (HCC) Coronary artery disease Hemiplegia (HCC) left side Hypertension Systolic murmur grade 2/6 Past Surgical History: Procedure Laterality Date AORTIC VALVE REPLACEMENT CARDIAC CATHETERIZATION 11/28/2011 No EF reported, cath was done in [place], [place] CORONARY ARTERY BYPASS GRAFT 12/02/2011 x1 CORONARY STENT PLACEMENT MASTECTOMY SHOULDER SURGERY Right TOTAL SHOULDER ARTHROPLASTY Right Social History Socioeconomic History Marital status: Tobacco Use Smoking status: Every Day Types: Cigarettes Smokeless tobacco: Never Tobacco comments: 2-3 cigs a week Vaping Use Vaping Use: Never used Substance and Sexual Activity Alcohol use: No Drug use: No ROS: Review of Systems Musculoskeletal: Positive for arthralgias, joint swelling and myalgias. ORTHO: Left Elbow Exam Tenderness The patient is experiencing tenderness in the olecranon fossa, radial head and radial capitellar joint. Range of Motion Extension: -20 Flexion: 110 Other Erythema: absent Sensation: normal Pulse: present Comments: Ecchymosis from elbow to left wrist Imaging: Left elbow: Fracture of the olecranon. Small joint effusion with soft tissue swelling. Assessment/Plan: After examination and reviewing the patient x-ray images I am going to keep her immobilized, to maintain a 90 degree angle of that elbow and I will see her back in 2 weeks for repeat imaging. She is to continue with either her OTC pain medications or her prescribed pain medications as needed. She does verbalize understanding and is in agreement the treatment plan. documented in this encounter [facility] 11-19-2022 History of Present illness Narrative [facility] TELEPHONIC OUTREACH Provider Action/FYI: Next PCP Visit: TBD at later date per patient's request ADLs, Fall Risk Assessment & Goal updated COPD JACLYN sent [facility] at Home [employer] message sent Contact made with patient: Yes Patient identified by name and . Discussed care with patient It s nice talking to you again. As a reminder, this is our check-in where I will be asking you questions about your health. This will only take a few minutes of your time. Is this a good time? Yes Symptoms What Chronic Disease(s) does the patient have: COPD Do you check your blood pressures at home? No Do you have new or worse shortness of breath with activity? No Do you have new or worsening cough? No Do you have new or worsening wheezing? No Do you need to use your rescue (Albuterol) inhaler or nebulizer more often than normal? No Are you having any other symptoms that your PCP needs to know about? No Symptoms: none Symptom Escalation JACLYN Education Ordered -: Yes - COPD The patient required an escalation for symptom(s)? No Medications Do you have any questions about taking your medication or which medications you should be on? No Do you need any medication refills at this time, including any of the medications you might take only when needed? No Social We would like to make sure you have what you need so that your basic needs are met- including your personal safety, food, housing and medications? Would you like to speak with a social work service team leader to help give you support for any of these needs? No It can be normal to feel anxious or down during a time like this. Would you like to talk to a mental health professional about how you have been feeling? No Closing Thank you for taking the time to talk with me today. We want to work with you to ensure that we are keeping your medical condition(s) well-controlled and to keep you healthy and out of the doctor's office or hospital. It s also not too late for me to sign you up for automated weekly questionnaires through [employer]. This is an easy way for us to stay connected each week. Are you interested? No OXANA Butcher, BA, whip operatorBusiness Objects Developer November 19, 2022 1:28 PM documented in this encounter [facility] 11-14-2022 Telephone encounter Note Patient requesting to have the Mobic increased. She has been taking twice a day instead of once daily. [facility] 11-14-2022 Miscellaneous Notes Patient requesting to have the Mobic increased. She has been taking twice a day instead of once daily. documented in this encounter [facility] 11-12-2022 Note HNO ID: [id number] Author: Raymond Mendez MD Service: ? Author Type: Physician Type: Progress Notes Filed: 11/12/2022 4:53 PM Note Text: ASSESSMENT/PLAN: 1. Status post cataract extraction and insertion of intraocular lens of right eye - ICD9: V45.61, V43.1, ICD10: Z98.41, Z96.1 Use medications as directed: Current Ophthalmic Meds keTORolac (ACULAR) 0.5 % ophthalmic solution Use 1 Drop in the right eye three times daily until 12/05/2022 prednisoLONE acetate (PRED FORTE) 1 % ophthalmic suspension Use 1 Drop in the right eye three times daily until 12/05/2022 Continue: Systane Complete solution instill 1 drop 3 times daily Both Eyes. Follow up with Dr. Srivastava at [facility] 2. Pseudophakia left eye Lens position well centered left eye Raymond Mendez MD I have confirmed and edited as necessary the relevant ophthalmic history, review of systems, surgical history, and ophthalmological examination findings as obtained by the ophthalmic technical staff. I have seen and examined Maricel Azar. I have discussed the examination findings, diagnosis, and treatment options with Maricel Azar and/or her family. I have also reviewed and agree with the assessment and plan as stated above and agree with all its relevant components. I gave the patient the opportunity to ask questions about the findings, diagnosis, and treatment options. [facility] 11-12-2022 Instructions Raymond Mendez MD - 11/12/2022 4:36 PM EST Use medications as directed: Current Ophthalmic Meds keTORolac (ACULAR) 0.5 % ophthalmic solution Use 1 Drop in the right eye three times daily until 12/05/2022 prednisoLONE acetate (PRED FORTE) 1 % ophthalmic suspension Use 1 Drop in the right eye three times daily until 12/05/2022 Continue: Systane Complete solution instill 1 drop 3 times daily Both Eyes. If you have any questions please contact our office at [phone]. After office hours or on the weekend, please call Dr. Mendez on his cell phone at [phone]. documented in this encounter [facility] 11-12-2022 History of Present illness Narrative ASSESSMENT/PLAN: 1. Status post cataract extraction and insertion of intraocular lens of right eye - ICD9: V45.61, V43.1, ICD10: Z98.41, Z96.1 Use medications as directed: Current Ophthalmic Meds keTORolac (ACULAR) 0.5 % ophthalmic solution Use 1 Drop in the right eye three times daily until 12/05/2022 prednisoLONE acetate (PRED FORTE) 1 % ophthalmic suspension Use 1 Drop in the right eye three times daily until 12/05/2022 Continue: Systane Complete solution instill 1 drop 3 times daily Both Eyes. Follow up with Dr. Srivastava at [facility] 2. Pseudophakia left eye Lens position well centered left eye Raymond Mendez MD I have confirmed and edited as necessary the relevant ophthalmic history, review of systems, surgical history, and ophthalmological examination findings as obtained by the ophthalmic technical staff. I have seen and examined Maricel Azar. I have discussed the examination findings, diagnosis, and treatment options with Maricel Azar and/or her family. I have also reviewed and agree with the assessment and plan as stated above and agree with all its relevant components. I gave the patient the opportunity to ask questions about the findings, diagnosis, and treatment options. documented in this encounter [facility] 11-01-2022 Note HNO ID: [id number] Author: Raymond Mendez MD Service: ? Author Type: Physician Type: Progress Notes Filed: 11/01/2022 2:56 PM Note Text: ASSESSMENT/PLAN: 1. Status post cataract extraction and insertion of intraocular lens of right eye - ICD9: V45.61, V43.1, ICD10: Z98.41, Z96.1 Current Ophthalmic Meds moxifloxacin (VIGAMOX) 0.5 % ophthalmic solution Use 1 Drop in the right eye four times daily. keTORolac (ACULAR) 0.5 % ophthalmic solution Use 1 Drop in the right eye four times daily. prednisoLONE acetate (PRED FORTE) 1 % ophthalmic suspension Use 1 Drop in the right eye four times daily. Continue: Systane Complete solution instill 1 drop 3 times daily Both Eyes. Raymond Mendez MD I have confirmed and edited as necessary the relevant ophthalmic history, review of systems, surgical history, and ophthalmological examination findings as obtained by the ophthalmic technical staff. I have seen and examined Maricel Azar. I have discussed the examination findings, diagnosis, and treatment options with Maricel Azar and/or her family. I have also reviewed and agree with the assessment and plan as stated above and agree with all its relevant components. I gave the patient the opportunity to ask questions about the findings, diagnosis, and treatment options. [facility] 11-01-2022 Instructions Raymond Mendez MD - 11/01/2022 2:55 PM EST Current Ophthalmic Meds moxifloxacin (VIGAMOX) 0.5 % ophthalmic solution Use 1 Drop in the right eye four times daily. keTORolac (ACULAR) 0.5 % ophthalmic solution Use 1 Drop in the right eye four times daily. prednisoLONE acetate (PRED FORTE) 1 % ophthalmic suspension Use 1 Drop in the right eye four times daily. Continue: Systane Complete solution instill 1 drop 3 times daily Both Eyes. If you have any questions please contact our office at [phone]. After office hours or on the weekend, please call Dr. Mendez on his cell phone at [phone]. documented in this encounter [facility] 11-01-2022 History of Present illness Narrative ASSESSMENT/PLAN: 1. Status post cataract extraction and insertion of intraocular lens of right eye - ICD9: V45.61, V43.1, ICD10: Z98.41, Z96.1 Current Ophthalmic Meds moxifloxacin (VIGAMOX) 0.5 % ophthalmic solution Use 1 Drop in the right eye four times daily. keTORolac (ACULAR) 0.5 % ophthalmic solution Use 1 Drop in the right eye four times daily. prednisoLONE acetate (PRED FORTE) 1 % ophthalmic suspension Use 1 Drop in the right eye four times daily. Continue: Systane Complete solution instill 1 drop 3 times daily Both Eyes. Raymond Mendez MD I have confirmed and edited as necessary the relevant ophthalmic history, review of systems, surgical history, and ophthalmological examination findings as obtained by the ophthalmic technical staff. I have seen and examined Maricel Azar. I have discussed the examination findings, diagnosis, and treatment options with Maricel Azar and/or her family. I have also reviewed and agree with the assessment and plan as stated above and agree with all its relevant components. I gave the patient the opportunity to ask questions about the findings, diagnosis, and treatment options. documented in this encounter [facility] documented as of this encounter (statuses as of 06/06/2023) [facility] History of Past illness Narrative* Problem Noted Date Diagnosed Date Resolved Date Status post cataract extract ion and insertion of intraocular lens of right eye 11/01/2022 023 Status post cataract extract ion and insertion of intraocular lens of left eye 07/26/2022 06/03/20 23 Combined forms of age-relate d cataract of right eye 07/08/2022 11/01/2022 Combined form of age-related cataract, left eye 07/08/2022 07/26/2022 Irritated//Inflamed Seborrheic Keratoses 02/26/2013 10/22/2013 Other Seborrheic Keratoses 02/26/2013 1 12/23/2012 Viral warts, unspecified 02/26/2013 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 -continue fentanyl patch, lidoderm patch, percocet prn. 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 [facility] PRE[facility] CHECK[facility] Surgeon: Ivan Mcfarland M.D. Informed Consent Completed: Yes STS Score: 2.485 CAD: Yes - CAD on Problem List: Yes Is intended procedure a CABG: Yes - is a beta brendon ordered? Yes H & P completed: Yes PA/LAT: Completed CT: Completed MRI: N/A LE US: N/A Cath: Yes - reviewed: Yes Echo:Completed EKG: Completed EF %: 57 PI's: Completed Carotid: Completed Mapping: N/A Dental: Cleared PFT's: Completed Basename 11/26/11 1112 WBC 9.60 HB 14.0 HCT 41.5 PLT 281 INR 1.0 CREAT 0.60* UA: Normal HCG:N/A ABO/ABO Confirmed: Yes Blood ordered: No SA Swab: Yes - results: Negative Last Dose of Anticoagulation: none Op Note: N/A Pacemaker Check: N/A Consults: none DM: No Cardiac Surgical prep: N/A SIGNATURE: OXANA Swan RN CHECKED BY: CIPRIANO DATE of SERVICE: 11/28/2011 TIME of SERVICE: 2:39 PM discharge planning 11/28/2011 3 Overview: 56 yr old female from [place], [place]. PT recommendations: Home with Outpatient Physical Therapy. Patient will need PRN assistance. Constipation 10/22/2013 Overview: 12/04/2011 Will start miralax. Cervical cancer 04/29/2023 Overview: s/p hysterectomy documented as of this encounter (statuses as of 07/07/2023) [facility] History of Past illness Narrative* Problem Noted Date Diagnosed Date Resolved Date Status post cataract extract ion and insertion of intraocular lens of right eye 11/01/2022 023 Status post cataract extract ion and insertion of intraocular lens of left eye 07/26/2022 06/03/20 23 Combined forms of age-relate d cataract of right eye 07/08/2022 11/01/2022 Combined form of age-related cataract, left eye 07/08/2022 07/26/2022 Irritated//Inflamed Seborrheic Keratoses 02/26/2013 10/22/2013 Other Seborrheic Keratoses 02/26/2013 1 12/23/2012 Viral warts, unspecified 02/26/2013 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 -continue fentanyl patch, lidoderm patch, percocet prn. 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 [facility] Surgeon: Ivan Mcfarland M.D. Informed Consent Completed: Yes STS Score: 2.485 CAD: Yes - CAD on Problem List: Yes Is intended procedure a CABG: Yes - is a beta brendon ordered? Yes H & P completed: Yes PA/LAT: Completed CT: Completed MRI: N/A LE US: N/A Cath: Yes - reviewed: Yes Echo:Completed EKG: Completed EF %: 57 PI's: Completed Carotid: Completed Mapping: N/A Dental: Cleared PFT's: Completed Basename 11/26/11 1112 WBC 9.60 HB 14.0 HCT 41.5 PLT 281 INR 1.0 CREAT 0.60* UA: Normal HCG:N/A ABO/ABO Confirmed: Yes Blood ordered: No SA Swab: Yes - results: Negative Last Dose of Anticoagulation: none Op Note: N/A Pacemaker Check: N/A Consults: none DM: No Cardiac Surgical prep: N/A SIGNATURE: OXANA Swan RN CHECKED BY: CIPRIANO DATE of SERVICE: 11/28/2011 TIME of SERVICE: 2:39 PM discharge planning 11/28/2011 3 Overview: 56 yr old female from [place], [place]. PT recommendations: Home with Outpatient Physical Therapy. Patient will need PRN assistance. Constipation 10/22/2013 Overview: 12/04/2011 Will start miralax. Cervical cancer 04/29/2023 Overview: s/p hysterectomy documented as of this encounter (statuses as of 07/16/2023) [facility] History of Past illness Narrative* Problem Noted Date Diagnosed Date Resolved Date Status post cataract extract ion and insertion of intraocular lens of right eye 11/01/2022 023 Status post cataract extract ion and insertion of intraocular lens of left eye 07/26/2022 06/03/20 Combined forms of age-relate d cataract of right eye 07/08/2022 11/01/2022 Combined form of age-related cataract, left eye 07/08/2022 07/26/2022 Irritated//Inflamed Seborrheic Keratoses 02/26/2013 10/22/2013 Other Seborrheic Keratoses 02/26/2013 1 12/23/2012 Viral warts, unspecified 02/26/2013 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 -continue fentanyl patch, lidoderm patch, percocet prn. 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 [facility] Surgeon: Ivan Mcfarland M.D. Informed Consent Completed: Yes STS Score: 2.485 CAD: Yes - CAD on Problem List: Yes Is intended procedure a CABG: Yes - is a beta brendon ordered? Yes H & P completed: Yes PA/LAT: Completed CT: Completed MRI: N/A LE US: N/A Cath: Yes - reviewed: Yes Echo:Completed EKG: Completed EF %: 57 PI's: Completed Carotid: Completed Mapping: N/A Dental: Cleared PFT's: Completed Basename 11/26/11 1112 WBC 9.60 HB 14.0 HCT 41.5 PLT 281 INR 1.0 CREAT 0.60* UA: Normal HCG:N/A ABO/ABO Confirmed: Yes Blood ordered: No SA Swab: Yes - results: Negative Last Dose of Anticoagulation: none Op Note: N/A Pacemaker Check: N/A Consults: none DM: No Cardiac Surgical prep: N/A SIGNATURE: OXANA Swan RN CHECKED BY: CIPRIANO DATE of SERVICE: 11/28/2011 TIME of SERVICE: 2:39 PM discharge planning 11/28/2011 10/22/2013 Overview: 56 yr old female from [place], [place]. PT recommendations: Home with Outpatient Physical Therapy. Patient will need PRN assistance. Constipation 10/22/2013 Overview: 12/04/2011 Will start miralax. 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 -continue fentanyl patch, lidoderm patch, percocet prn. 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 [facility] Surgeon: Ivan Mcfarland M.D. Informed Consent Completed: Yes STS Score: 2.485 CAD: Yes - CAD on Problem List: Yes Is intended procedure a CABG: Yes - is a beta brendon ordered? Yes H & P completed: Yes PA/LAT: Completed CT: Completed MRI: N/A LE US: N/A Cath: Yes - reviewed: Yes Echo:Completed EKG: Completed EF %: 57 PI's: Completed Carotid: Completed Mapping: N/A Dental: Cleared PFT's: Completed Basename 11/26/11 1112 WBC 9.60 HB 14.0 HCT 41.5 PLT 281 INR 1.0 CREAT 0.60* UA: Normal HCG:N/A ABO/ABO Confirmed: Yes Blood ordered: No SA Swab: Yes - results: Negative Last Dose of Anticoagulation: none Op Note: N/A Pacemaker Check: N/A Consults: none DM: No Cardiac Surgical prep: N/A SIGNATURE: OXANA Swan RN CHECKED BY: CIPRIANO DATE of SERVICE: 11/28/2011 TIME of SERVICE: 2:39 PM discharge planning 11/28/2011 10/22/2013 Overview: 56 yr old female from [place], [place]. PT recommendations: Home with Outpatient Physical Therapy. Patient will need PRN assistance. Constipation 10/22/2013 Overview: 12/04/2011 Will start miralax. 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 -continue fentanyl patch, lidoderm patch, percocet prn. 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 [facility] Surgeon: Ivan Mcfarland M.D. Informed Consent Completed: Yes STS Score: 2.485 CAD: Yes - CAD on Problem List: Yes Is intended procedure a CABG: Yes - is a beta brendon ordered? Yes H & P completed: Yes PA/LAT: Completed CT: Completed MRI: N/A LE US: N/A Cath: Yes - reviewed: Yes Echo:Completed EKG: Completed EF %: 57 PI's: Completed Carotid: Completed Mapping: N/A Dental: Cleared PFT's: Completed Basename 11/26/11 1112 WBC 9.60 HB 14.0 HCT 41.5 PLT 281 INR 1.0 CREAT 0.60* UA: Normal HCG:N/A ABO/ABO Confirmed: Yes Blood ordered: No SA Swab: Yes - results: Negative Last Dose of Anticoagulation: none Op Note: N/A Pacemaker Check: N/A Consults: none DM: No Cardiac Surgical prep: N/A SIGNATURE: OXANA Swan RN CHECKED BY: CIPRIANO DATE of SERVICE: 11/28/2011 TIME of SERVICE: 2:39 PM discharge planning 11/28/2011 10/22/2013 Overview: 56 yr old female from [place], [place]. PT recommendations: Home with Outpatient Physical Therapy. Patient will need PRN assistance. Constipation 10/22/2013 Overview: 12/04/2011 Will start miralax. 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 -continue fentanyl patch, lidoderm patch, percocet prn. 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 [facility] Surgeon: Ivan Mcfarland M.D. Informed Consent Completed: Yes STS Score: 2.485 CAD: Yes - CAD on Problem List: Yes Is intended procedure a CABG: Yes - is a beta brendon ordered? Yes H & P completed: Yes PA/LAT: Completed CT: Completed MRI: N/A LE US: N/A Cath: Yes - reviewed: Yes Echo:Completed EKG: Completed EF %: 57 PI's: Completed Carotid: Completed Mapping: N/A Dental: Cleared PFT's: Completed Basename 11/26/11 1112 WBC 9.60 HB 14.0 HCT 41.5 PLT 281 INR 1.0 CREAT 0.60* UA: Normal HCG:N/A ABO/ABO Confirmed: Yes Blood ordered: No SA Swab: Yes - results: Negative Last Dose of Anticoagulation: none Op Note: N/A Pacemaker Check: N/A Consults: none DM: No Cardiac Surgical prep: N/A SIGNATURE: OXANA Swan RN CHECKED BY: CIPRIANO DATE of SERVICE: 11/28/2011 TIME of SERVICE: 2:39 PM discharge planning 11/28/2011 10/22/2013 Overview: 56 yr old female from [place], [place]. PT recommendations: Home with Outpatient Physical Therapy. Patient will need PRN assistance. Constipation 10/22/2013 Overview: 12/04/2011 Will start miralax. 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 -continue fentanyl patch, lidoderm patch, percocet prn. 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 [facility] Surgeon: Ivan Mcfarland M.D. Informed Consent Completed: Yes STS Score: 2.485 CAD: Yes - CAD on Problem List: Yes Is intended procedure a CABG: Yes - is a beta brendon ordered? Yes H & P completed: Yes PA/LAT: Completed CT: Completed MRI: N/A LE US: N/A Cath: Yes - reviewed: Yes Echo:Completed EKG: Completed EF %: 57 PI's: Completed Carotid: Completed Mapping: N/A Dental: Cleared PFT's: Completed Basename 11/26/11 1112 WBC 9.60 HB 14.0 HCT 41.5 PLT 281 INR 1.0 CREAT 0.60* UA: Normal HCG:N/A ABO/ABO Confirmed: Yes Blood ordered: No SA Swab: Yes - results: Negative Last Dose of Anticoagulation: none Op Note: N/A Pacemaker Check: N/A Consults: none DM: No Cardiac Surgical prep: N/A SIGNATURE: OXANA Swan RN CHECKED BY: CIPRIANO DATE of SERVICE: 11/28/2011 TIME of SERVICE: 2:39 PM discharge planning 11/28/2011 10/22/2013 Overview: 56 yr old female from [place], [place]. PT recommendations: Home with Outpatient Physical Therapy. Patient will need PRN assistance. Constipation 10/22/2013 Overview: 12/04/2011 Will start miralax. 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 -continue fentanyl patch, lidoderm patch, percocet prn. 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 [facility] Surgeon: Ivan Mcfarland M.D. Informed Consent Completed: Yes STS Score: 2.485 CAD: Yes - CAD on Problem List: Yes Is intended procedure a CABG: Yes - is a beta brendon ordered? Yes H & P completed: Yes PA/LAT: Completed CT: Completed MRI: N/A LE US: N/A Cath: Yes - reviewed: Yes Echo:Completed EKG: Completed EF %: 57 PI's: Completed Carotid: Completed Mapping: N/A Dental: Cleared PFT's: Completed Basename 11/26/11 1112 WBC 9.60 HB 14.0 HCT 41.5 PLT 281 INR 1.0 CREAT 0.60* UA: Normal HCG:N/A ABO/ABO Confirmed: Yes Blood ordered: No SA Swab: Yes - results: Negative Last Dose of Anticoagulation: none Op Note: N/A Pacemaker Check: N/A Consults: none DM: No Cardiac Surgical prep: N/A SIGNATURE: OXANA Swan RN CHECKED BY: CIPRIANO DATE of SERVICE: 11/28/2011 TIME of SERVICE: 2:39 PM discharge planning 11/28/2011 10/22/2013 Overview: 56 yr old female from [place], [place]. PT recommendations: Home with Outpatient Physical Therapy. Patient will need PRN assistance. Constipation 10/22/2013 Overview: 12/04/2011 Will start miralax. 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 -continue fentanyl patch, lidoderm patch, percocet prn. 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 [facility] Surgeon: Ivan Mcfarland M.D. Informed Consent Completed: Yes STS Score: 2.485 CAD: Yes - CAD on Problem List: Yes Is intended procedure a CABG: Yes - is a beta brendon ordered? Yes H & P completed: Yes PA/LAT: Completed CT: Completed MRI: N/A LE US: N/A Cath: Yes - reviewed: Yes Echo:Completed EKG: Completed EF %: 57 PI's: Completed Carotid: Completed Mapping: N/A Dental: Cleared PFT's: Completed Basename 11/26/11 1112 WBC 9.60 HB 14.0 HCT 41.5 PLT 281 INR 1.0 CREAT 0.60* UA: Normal HCG:N/A ABO/ABO Confirmed: Yes Blood ordered: No SA Swab: Yes - results: Negative Last Dose of Anticoagulation: none Op Note: N/A Pacemaker Check: N/A Consults: none DM: No Cardiac Surgical prep: N/A SIGNATURE: OXANA Swan RN CHECKED BY: CIPRIANO DATE of SERVICE: 11/28/2011 TIME of SERVICE: 2:39 PM discharge planning 11/28/2011 10/22/2013 Overview: 56 yr old female from [place], [place]. PT recommendations: Home with Outpatient Physical Therapy. Patient will need PRN assistance. Constipation 10/22/2013 Overview: 12/04/2011 Will start miralax. 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 -continue fentanyl patch, lidoderm patch, percocet prn. 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 [facility] Surgeon: Ivan Mcfarland M.D. Informed Consent Completed: Yes STS Score: 2.485 CAD: Yes - CAD on Problem List: Yes Is intended procedure a CABG: Yes - is a beta brendon ordered? Yes H & P completed: Yes PA/LAT: Completed CT: Completed MRI: N/A LE US: N/A Cath: Yes - reviewed: Yes Echo:Completed EKG: Completed EF %: 57 PI's: Completed Carotid: Completed Mapping: N/A Dental: Cleared PFT's: Completed Basename 11/26/11 1112 WBC 9.60 HB 14.0 HCT 41.5 PLT 281 INR 1.0 CREAT 0.60* UA: Normal HCG:N/A ABO/ABO Confirmed: Yes Blood ordered: No SA Swab: Yes - results: Negative Last Dose of Anticoagulation: none Op Note: N/A Pacemaker Check: N/A Consults: none DM: No Cardiac Surgical prep: N/A SIGNATURE: OXANA Swan RN CHECKED BY: CIPRIANO DATE of SERVICE: 11/28/2011 TIME of SERVICE: 2:39 PM discharge planning 11/28/2011 10/22/2013 Overview: 56 yr old female from [place], [place]. PT recommendations: Home with Outpatient Physical Therapy. Patient will need PRN assistance. Constipation 10/22/2013 Overview: 12/04/2011 Will start miralax. 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 -continue fentanyl patch, lidoderm patch, percocet prn. 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 [facility] Surgeon: Ivan Mcfarland M.D. Informed Consent Completed: Yes STS Score: 2.485 CAD: Yes - CAD on Problem List: Yes Is intended procedure a CABG: Yes - is a beta brendon ordered? Yes H & P completed: Yes PA/LAT: Completed CT: Completed MRI: N/A LE US: N/A Cath: Yes - reviewed: Yes Echo:Completed EKG: Completed EF %: 57 PI's: Completed Carotid: Completed Mapping: N/A Dental: Cleared PFT's: Completed Basename 11/26/11 1112 WBC 9.60 HB 14.0 HCT 41.5 PLT 281 INR 1.0 CREAT 0.60* UA: Normal HCG:N/A ABO/ABO Confirmed: Yes Blood ordered: No SA Swab: Yes - results: Negative Last Dose of Anticoagulation: none Op Note: N/A Pacemaker Check: N/A Consults: none DM: No Cardiac Surgical prep: N/A SIGNATURE: OXANA Swan RN CHECKED BY: CIPRIANO DATE of SERVICE: 11/28/2011 TIME of SERVICE: 2:39 PM discharge planning 11/28/2011 10/22/2013 Overview: 56 yr old female from [place], [place]. PT recommendations: Home with Outpatient Physical Therapy. Patient will need PRN assistance. Constipation 10/22/2013 Overview: 12/04/2011 Will start miralax. 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 -continue fentanyl patch, lidoderm patch, percocet prn. 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 [facility] Surgeon: Ivan Mcfarland M.D. Informed Consent Completed: Yes STS Score: 2.485 CAD: Yes - CAD on Problem List: Yes Is intended procedure a CABG: Yes - is a beta brendon ordered? Yes H & P completed: Yes PA/LAT: Completed CT: Completed MRI: N/A LE US: N/A Cath: Yes - reviewed: Yes Echo:Completed EKG: Completed EF %: 57 PI's: Completed Carotid: Completed Mapping: N/A Dental: Cleared PFT's: Completed Basename 11/26/11 1112 WBC 9.60 HB 14.0 HCT 41.5 PLT 281 INR 1.0 CREAT 0.60* UA: Normal HCG:N/A ABO/ABO Confirmed: Yes Blood ordered: No SA Swab: Yes - results: Negative Last Dose of Anticoagulation: none Op Note: N/A Pacemaker Check: N/A Consults: none DM: No Cardiac Surgical prep: N/A SIGNATURE: OXANA Swan RN CHECKED BY: CIPRIANO DATE of SERVICE: 11/28/2011 TIME of SERVICE: 2:39 PM discharge planning 11/28/2011 10/22/2013 Overview: 56 yr old female from [place], [place]. PT recommendations: Home with Outpatient Physical Therapy. Patient will need PRN assistance. Constipation 10/22/2013 Overview: 12/04/2011 Will start miralax. 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 -continue fentanyl patch, lidoderm patch, percocet prn. 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 [facility] Surgeon: Ivan Mcfarland M.D. Informed Consent Completed: Yes STS Score: 2.485 CAD: Yes - CAD on Problem List: Yes Is intended procedure a CABG: Yes - is a beta brendon ordered? Yes H & P completed: Yes PA/LAT: Completed CT: Completed MRI: N/A LE US: N/A Cath: Yes - reviewed: Yes Echo:Completed EKG: Completed EF %: 57 PI's: Completed Carotid: Completed Mapping: N/A Dental: Cleared PFT's: Completed Basename 11/26/11 1112 WBC 9.60 HB 14.0 HCT 41.5 PLT 281 INR 1.0 CREAT 0.60* UA: Normal HCG:N/A ABO/ABO Confirmed: Yes Blood ordered: No SA Swab: Yes - results: Negative Last Dose of Anticoagulation: none Op Note: N/A Pacemaker Check: N/A Consults: none DM: No Cardiac Surgical prep: N/A SIGNATURE: OXANA Swan RN CHECKED BY: CIPRIANO DATE of SERVICE: 11/28/2011 TIME of SERVICE: 2:39 PM discharge planning 11/28/2011 10/22/2013 Overview: 56 yr old female from [place], [place]. PT recommendations: Home with Outpatient Physical Therapy. Patient will need PRN assistance. Constipation 10/22/2013 Overview: 12/04/2011 Will start miralax. 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 -continue fentanyl patch, lidoderm patch, percocet prn. 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 [facility] Surgeon: Ivan Mcfarland M.D. Informed Consent Completed: Yes STS Score: 2.485 CAD: Yes - CAD on Problem List: Yes Is intended procedure a CABG: Yes - is a beta brendon ordered? Yes H & P completed: Yes PA/LAT: Completed CT: Completed MRI: N/A LE US: N/A Cath: Yes - reviewed: Yes Echo:Completed EKG: Completed EF %: 57 PI's: Completed Carotid: Completed Mapping: N/A Dental: Cleared PFT's: Completed Basename 11/26/11 1112 WBC 9.60 HB 14.0 HCT 41.5 PLT 281 INR 1.0 CREAT 0.60* UA: Normal HCG:N/A ABO/ABO Confirmed: Yes Blood ordered: No SA Swab: Yes - results: Negative Last Dose of Anticoagulation: none Op Note: N/A Pacemaker Check: N/A Consults: none DM: No Cardiac Surgical prep: N/A SIGNATURE: OXANA Swan RN CHECKED BY: CIPRIANO DATE of SERVICE: 11/28/2011 TIME of SERVICE: 2:39 PM discharge planning 11/28/2011 10/22/2013 Overview: 56 yr old female from [place], [place]. PT recommendations: Home with Outpatient Physical Therapy. Patient will need PRN assistance. Constipation 10/22/2013 Overview: 12/04/2011 Will start miralax. 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 -continue fentanyl patch, lidoderm patch, percocet prn. 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 [facility] Surgeon: Ivan Mcfarland M.D. Informed Consent Completed: Yes STS Score: 2.485 CAD: Yes - CAD on Problem List: Yes Is intended procedure a CABG: Yes - is a beta brendon ordered? Yes H & P completed: Yes PA/LAT: Completed CT: Completed MRI: N/A LE US: N/A Cath: Yes - reviewed: Yes Echo:Completed EKG: Completed EF %: 57 PI's: Completed Carotid: Completed Mapping: N/A Dental: Cleared PFT's: Completed Basename 11/26/11 1112 WBC 9.60 HB 14.0 HCT 41.5 PLT 281 INR 1.0 CREAT 0.60* UA: Normal HCG:N/A ABO/ABO Confirmed: Yes Blood ordered: No SA Swab: Yes - results: Negative Last Dose of Anticoagulation: none Op Note: N/A Pacemaker Check: N/A Consults: none DM: No Cardiac Surgical prep: N/A SIGNATURE: OXANA Swan RN CHECKED BY: CIPRIANO DATE of SERVICE: 11/28/2011 TIME of SERVICE: 2:39 PM discharge planning 11/28/2011 10/22/2013 Overview: 56 yr old female from [place], [place]. PT recommendations: Home with Outpatient Physical Therapy. Patient will need PRN assistance. Constipation 10/22/2013 Overview: 12/04/2011 Will start miralax. 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 -continue fentanyl patch, lidoderm patch, percocet prn. 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 [facility] Surgeon: Ivan Mcfarland M.D. Informed Consent Completed: Yes STS Score: 2.485 CAD: Yes - CAD on Problem List: Yes Is intended procedure a CABG: Yes - is a beta brendon ordered? Yes H & P completed: Yes PA/LAT: Completed CT: Completed MRI: N/A LE US: N/A Cath: Yes - reviewed: Yes Echo:Completed EKG: Completed EF %: 57 PI's: Completed Carotid: Completed Mapping: N/A Dental: Cleared PFT's: Completed Basename 11/26/11 1112 WBC 9.60 HB 14.0 HCT 41.5 PLT 281 INR 1.0 CREAT 0.60* UA: Normal HCG:N/A ABO/ABO Confirmed: Yes Blood ordered: No SA Swab: Yes - results: Negative Last Dose of Anticoagulation: none Op Note: N/A Pacemaker Check: N/A Consults: none DM: No Cardiac Surgical prep: N/A SIGNATURE: OXANA Swan RN CHECKED BY: CIPRIANO DATE of SERVICE: 11/28/2011 TIME of SERVICE: 2:39 PM discharge planning 11/28/2011 10/22/2013 Overview: 56 yr old female from [place], [place]. PT recommendations: Home with Outpatient Physical Therapy. Patient will need PRN assistance. Constipation 10/22/2013 Overview: 12/04/2011 Will start miralax. 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 -continue fentanyl patch, lidoderm patch, percocet prn. 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 [facility] Surgeon: Ivan Mcfarland M.D. Informed Consent Completed: Yes STS Score: 2.485 CAD: Yes - CAD on Problem List: Yes Is intended procedure a CABG: Yes - is a beta brendon ordered? Yes H & P completed: Yes PA/LAT: Completed CT: Completed MRI: N/A LE US: N/A Cath: Yes - reviewed: Yes Echo:Completed EKG: Completed EF %: 57 PI's: Completed Carotid: Completed Mapping: N/A Dental: Cleared PFT's: Completed Basename 11/26/11 1112 WBC 9.60 HB 14.0 HCT 41.5 PLT 281 INR 1.0 CREAT 0.60* UA: Normal HCG:N/A ABO/ABO Confirmed: Yes Blood ordered: No SA Swab: Yes - results: Negative Last Dose of Anticoagulation: none Op Note: N/A Pacemaker Check: N/A Consults: none DM: No Cardiac Surgical prep: N/A SIGNATURE: OXANA Swan RN CHECKED BY: CIPRIANO DATE of SERVICE: 11/28/2011 TIME of SERVICE: 2:39 PM discharge planning 11/28/2011 10/22/2013 Overview: 56 yr old female from [place], [place]. PT recommendations: Home with Outpatient Physical Therapy. Patient will need PRN assistance. Constipation 10/22/2013 Overview: 12/04/2011 Will start miralax. 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 -continue fentanyl patch, lidoderm patch, percocet prn. 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 [facility] Surgeon: Ivan Mcfarland M.D. Informed Consent Completed: Yes STS Score: 2.485 CAD: Yes - CAD on Problem List: Yes Is intended procedure a CABG: Yes - is a beta brendon ordered? Yes H & P completed: Yes PA/LAT: Completed CT: Completed MRI: N/A LE US: N/A Cath: Yes - reviewed: Yes Echo:Completed EKG: Completed EF %: 57 PI's: Completed Carotid: Completed Mapping: N/A Dental: Cleared PFT's: Completed Basename 11/26/11 1112 WBC 9.60 HB 14.0 HCT 41.5 PLT 281 INR 1.0 CREAT 0.60* UA: Normal HCG:N/A ABO/ABO Confirmed: Yes Blood ordered: No SA Swab: Yes - results: Negative Last Dose of Anticoagulation: none Op Note: N/A Pacemaker Check: N/A Consults: none DM: No Cardiac Surgical prep: N/A SIGNATURE: OXANA Swan RN CHECKED BY: CIPRIANO DATE of SERVICE: 11/28/2011 TIME of SERVICE: 2:39 PM discharge planning 11/28/2011 10/22/2013 Overview: 56 yr old female from [place], [place]. PT recommendations: Home with Outpatient Physical Therapy. Patient will need PRN assistance. Constipation 10/22/2013 Overview: 12/04/2011 Will start miralax. 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 -continue fentanyl patch, lidoderm patch, percocet prn. 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 [facility] Surgeon: Ivan Mcfarland M.D. Informed Consent Completed: Yes STS Score: 2.485 CAD: Yes - CAD on Problem List: Yes Is intended procedure a CABG: Yes - is a beta brendon ordered? Yes H & P completed: Yes PA/LAT: Completed CT: Completed MRI: N/A LE US: N/A Cath: Yes - reviewed: Yes Echo:Completed EKG: Completed EF %: 57 PI's: Completed Carotid: Completed Mapping: N/A Dental: Cleared PFT's: Completed Basename 11/26/11 1112 WBC 9.60 HB 14.0 HCT 41.5 PLT 281 INR 1.0 CREAT 0.60* UA: Normal HCG:N/A ABO/ABO Confirmed: Yes Blood ordered: No SA Swab: Yes - results: Negative Last Dose of Anticoagulation: none Op Note: N/A Pacemaker Check: N/A Consults: none DM: No Cardiac Surgical prep: N/A SIGNATURE: OXANA Swan RN CHECKED BY: CIPRIANO DATE of SERVICE: 11/28/2011 TIME of SERVICE: 2:39 PM discharge planning 11/28/2011 10/22/2013 Overview: 56 yr old female from [place], [place]. PT recommendations: Home with Outpatient Physical Therapy. Patient will need PRN assistance. Constipation 10/22/2013 Overview: 12/04/2011 Will start miralax. 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 -continue fentanyl patch, lidoderm patch, percocet prn. 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 [facility] Surgeon: Ivan Mcfarland M.D. Informed Consent Completed: Yes STS Score: 2.485 CAD: Yes - CAD on Problem List: Yes Is intended procedure a CABG: Yes - is a beta brendon ordered? Yes H & P completed: Yes PA/LAT: Completed CT: Completed MRI: N/A LE US: N/A Cath: Yes - reviewed: Yes Echo:Completed EKG: Completed EF %: 57 PI's: Completed Carotid: Completed Mapping: N/A Dental: Cleared PFT's: Completed Basename 11/26/11 1112 WBC 9.60 HB 14.0 HCT 41.5 PLT 281 INR 1.0 CREAT 0.60* UA: Normal HCG:N/A ABO/ABO Confirmed: Yes Blood ordered: No SA Swab: Yes - results: Negative Last Dose of Anticoagulation: none Op Note: N/A Pacemaker Check: N/A Consults: none DM: No Cardiac Surgical prep: N/A SIGNATURE: OXANA Swan RN CHECKED BY: CIPRIANO DATE of SERVICE: 11/28/2011 TIME of SERVICE: 2:39 PM discharge planning 11/28/2011 10/22/2013 Overview: 56 yr old female from [place], [place]. PT recommendations: Home with Outpatient Physical Therapy. Patient will need PRN assistance. Constipation 10/22/2013 Overview: 12/04/2011 Will start miralax. 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 -continue fentanyl patch, lidoderm patch, percocet prn. 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 [facility] Surgeon: Ivan Mcfarland M.D. Informed Consent Completed: Yes STS Score: 2.485 CAD: Yes - CAD on Problem List: Yes Is intended procedure a CABG: Yes - is a beta brendon ordered? Yes H & P completed: Yes PA/LAT: Completed CT: Completed MRI: N/A LE US: N/A Cath: Yes - reviewed: Yes Echo:Completed EKG: Completed EF %: 57 PI's: Completed Carotid: Completed Mapping: N/A Dental: Cleared PFT's: Completed Basename 11/26/11 1112 WBC 9.60 HB 14.0 HCT 41.5 PLT 281 INR 1.0 CREAT 0.60* UA: Normal HCG:N/A ABO/ABO Confirmed: Yes Blood ordered: No SA Swab: Yes - results: Negative Last Dose of Anticoagulation: none Op Note: N/A Pacemaker Check: N/A Consults: none DM: No Cardiac Surgical prep: N/A SIGNATURE: OXANA Swan RN CHECKED BY: CIPRIANO DATE of SERVICE: 11/28/2011 TIME of SERVICE: 2:39 PM discharge planning 11/28/2011 10/22/2013 Overview: 56 yr old female from [place], [place]. PT recommendations: Home with Outpatient Physical Therapy. Patient will need PRN assistance. Constipation 10/22/2013 Overview: 12/04/2011 Will start miralax. 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 -continue fentanyl patch, lidoderm patch, percocet prn. 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 [facility] Surgeon: Ivan Mcfarland M.D. Informed Consent Completed: Yes STS Score: 2.485 CAD: Yes - CAD on Problem List: Yes Is intended procedure a CABG: Yes - is a beta brendon ordered? Yes H & P completed: Yes PA/LAT: Completed CT: Completed MRI: N/A LE US: N/A Cath: Yes - reviewed: Yes Echo:Completed EKG: Completed EF %: 57 PI's: Completed Carotid: Completed Mapping: N/A Dental: Cleared PFT's: Completed Basename 11/26/11 1112 WBC 9.60 HB 14.0 HCT 41.5 PLT 281 INR 1.0 CREAT 0.60* UA: Normal HCG:N/A ABO/ABO Confirmed: Yes Blood ordered: No SA Swab: Yes - results: Negative Last Dose of Anticoagulation: none Op Note: N/A Pacemaker Check: N/A Consults: none DM: No Cardiac Surgical prep: N/A SIGNATURE: XOANA Swan RN CHECKED BY: CIPRIANO DATE of SERVICE: 11/28/2011 TIME of SERVICE: 2:39 PM discharge planning 11/28/2011 10/22/2013 Overview: 56 yr old female from [place], [place]. PT recommendations: Home with Outpatient Physical Therapy. Patient will need PRN assistance. Constipation 10/22/2013 Overview: 12/04/2011 Will start miralax. 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 -continue fentanyl patch, lidoderm patch, percocet prn. 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 [facility] Surgeon: Ivan Mcfarland M.D. Informed Consent Completed: Yes STS Score: 2.485 CAD: Yes - CAD on Problem List: Yes Is intended procedure a CABG: Yes - is a beta brendon ordered? Yes H & P completed: Yes PA/LAT: Completed CT: Completed MRI: N/A LE US: N/A Cath: Yes - reviewed: Yes Echo:Completed EKG: Completed EF %: 57 PI's: Completed Carotid: Completed Mapping: N/A Dental: Cleared PFT's: Completed Basename 11/26/11 1112 WBC 9.60 HB 14.0 HCT 41.5 PLT 281 INR 1.0 CREAT 0.60* UA: Normal HCG:N/A ABO/ABO Confirmed: Yes Blood ordered: No SA Swab: Yes - results: Negative Last Dose of Anticoagulation: none Op Note: N/A Pacemaker Check: N/A Consults: none DM: No Cardiac Surgical prep: N/A SIGNATURE: OXANA Swan RN CHECKED BY: CIPRIANO DATE of SERVICE: 11/28/2011 TIME of SERVICE: 2:39 PM discharge planning 11/28/2011 10/22/2013 Overview: 56 yr old female from [place], [place]. PT recommendations: Home with Outpatient Physical Therapy. Patient will need PRN assistance. Constipation 10/22/2013 Overview: 12/04/2011 Will start miralax. 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 -continue fentanyl patch, lidoderm patch, percocet prn. 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 [facility] Surgeon: Ivan Mcfarland M.D. Informed Consent Completed: Yes STS Score: 2.485 CAD: Yes - CAD on Problem List: Yes Is intended procedure a CABG: Yes - is a beta brendon ordered? Yes H & P completed: Yes PA/LAT: Completed CT: Completed MRI: N/A LE US: N/A Cath: Yes - reviewed: Yes Echo:Completed EKG: Completed EF %: 57 PI's: Completed Carotid: Completed Mapping: N/A Dental: Cleared PFT's: Completed Basename 11/26/11 1112 WBC 9.60 HB 14.0 HCT 41.5 PLT 281 INR 1.0 CREAT 0.60* UA: Normal HCG:N/A ABO/ABO Confirmed: Yes Blood ordered: No SA Swab: Yes - results: Negative Last Dose of Anticoagulation: none Op Note: N/A Pacemaker Check: N/A Consults: none DM: No Cardiac Surgical prep: N/A SIGNATURE: OXANA Swan RN CHECKED BY: CIPRIANO DATE of SERVICE: 11/28/2011 TIME of SERVICE: 2:39 PM discharge planning 11/28/2011 10/22/2013 Overview: 56 yr old female from [place], [place]. PT recommendations: Home with Outpatient Physical Therapy. Patient will need PRN assistance. Constipation 10/22/2013 Overview: 12/04/2011 Will start miralax. 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 -continue fentanyl patch, lidoderm patch, percocet prn. 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 [facility] Surgeon: Ivan Mcfarland M.D. Informed Consent Completed: Yes STS Score: 2.485 CAD: Yes - CAD on Problem List: Yes Is intended procedure a CABG: Yes - is a beta brendon ordered? Yes H & P completed: Yes PA/LAT: Completed CT: Completed MRI: N/A LE US: N/A Cath: Yes - reviewed: Yes Echo:Completed EKG: Completed EF %: 57 PI's: Completed Carotid: Completed Mapping: N/A Dental: Cleared PFT's: Completed Basename 11/26/11 1112 WBC 9.60 HB 14.0 HCT 41.5 PLT 281 INR 1.0 CREAT 0.60* UA: Normal HCG:N/A ABO/ABO Confirmed: Yes Blood ordered: No SA Swab: Yes - results: Negative Last Dose of Anticoagulation: none Op Note: N/A Pacemaker Check: N/A Consults: none DM: No Cardiac Surgical prep: N/A SIGNATURE: OXANA Swan RN CHECKED BY: CIPRIANO DATE of SERVICE: 11/28/2011 TIME of SERVICE: 2:39 PM discharge planning 11/28/2011 10/22/2013 Overview: 56 yr old female from [place], [place]. PT recommendations: Home with Outpatient Physical Therapy. Patient will need PRN assistance. Constipation 10/22/2013 Overview: 12/04/2011 Will start miralax. 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 -continue fentanyl patch, lidoderm patch, percocet prn. 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 ordered? Yes H & P completed: Yes PA/LAT: Completed CT: Completed MRI: N/A LE US: N/A Cath: Yes - reviewed: Yes Echo:Completed EKG: Completed EF %: 57 PI's: Completed Carotid: Completed Mapping: N/A Dental: Cleared PFT's: Completed Basename 11/26/11 1112 WBC 9.60 HB 14.0 HCT 41.5 PLT 281 INR 1.0 CREAT 0.60* UA: Normal HCG:N/A ABO/ABO Confirmed: Yes Blood ordered: No SA Swab: Yes - results: Negative Last Dose of Anticoagulation: none Op Note: N/A Pacemaker Check: N/A Consults: none DM: No Cardiac Surgical prep: N/A SIGNATURE: OXANA Swan RN CHECKED BY: CIPRIANO DATE of SERVICE: 11/28/2011 TIME of SERVICE: 2:39 PM discharge planning 11/28/2011 10/22/2013 Overview: 56 yr old female from [place], [place]. PT recommendations: Home with Outpatient Physical Therapy. Patient will need PRN assistance. Constipation 10/22/2013 Overview: 12/04/2011 Will start miralax. 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 -continue fentanyl patch, lidoderm patch, percocet prn. 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 [facility] Surgeon: Ivan Mcfarland M.D. Informed Consent Completed: Yes STS Score: 2.485 CAD: Yes - CAD on Problem List: Yes Is intended procedure a CABG: Yes - is a beta brendon ordered? Yes H & P completed: Yes PA/LAT: Completed CT: Completed MRI: N/A LE US: N/A Cath: Yes - reviewed: Yes Echo:Completed EKG: Completed EF %: 57 PI's: Completed Carotid: Completed Mapping: N/A Dental: Cleared PFT's: Completed Basename 1/17/12 1112 WBC 9.60 HB 14.0 HCT 41.5 PLT 281 INR 1.0 CREAT 0.60* UA: Normal HCG:N/A ABO/ABO Confirmed: Yes Blood ordered: No SA Swab: Yes - results: Negative Last Dose of Anticoagulation: none Op Note: N/A Pacemaker Check: N/A Consults: none DM: No Cardiac Surgical prep: N/A SIGNATURE: OXANA Swan RN CHECKED BY: CIPRIANO DATE of SERVICE: 11/28/2011 TIME of SERVICE: 2:39 PM discharge planning 11/28/2011 10/22/2013 Overview: 56 yr old female from [place], [place]. PT recommendations: Home with Outpatient Physical Therapy. Patient will need PRN assistance. Constipation 10/22/2013 Overview: 12/04/2011 Will start miralax. 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 -continue fentanyl patch, lidoderm patch, percocet prn. 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 [facility] Surgeon: Ivan Mcfarland M.D. Informed Consent Completed: Yes STS Score: 2.485 CAD: Yes - CAD on Problem List: Yes Is intended procedure a CABG: Yes - is a beta brendon ordered? Yes H & P completed: Yes PA/LAT: Completed CT: Completed MRI: N/A LE US: N/A Cath: Yes - reviewed: Yes Echo:Completed EKG: Completed EF %: 57 PI's: Completed Carotid: Completed Mapping: N/A Dental: Cleared PFT's: Completed Basename 11/26/11 1112 WBC 9.60 HB 14.0 HCT 41.5 PLT 281 INR 1.0 CREAT 0.60* UA: Normal HCG:N/A ABO/ABO Confirmed: Yes Blood ordered: No SA Swab: Yes - results: Negative Last Dose of Anticoagulation: none Op Note: N/A Pacemaker Check: N/A Consults: none DM: No Cardiac Surgical prep: N/A SIGNATURE: OXANA Swan RN CHECKED BY: CIPRIANO DATE of SERVICE: 11/28/2011 TIME of SERVICE: 2:39 PM discharge planning 11/28/2011 10/22/2013 Overview: 56 yr old female from [place], [place]. PT recommendations: Home with Outpatient Physical Therapy. Patient will need PRN assistance. Constipation 10/22/2013 Overview: 12/04/2011 Will start miralax. 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 -continue fentanyl patch, lidoderm patch, percocet prn. 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 [facility] Surgeon: Ivan Mcfarland M.D. Informed Consent Completed: Yes STS Score: 2.485 CAD: Yes - CAD on Problem List: Yes Is intended procedure a CABG: Yes - is a beta brendon ordered? Yes H & P completed: Yes PA/LAT: Completed CT: Completed MRI: N/A LE US: N/A Cath: Yes - reviewed: Yes Echo:Completed EKG: Completed EF %: 57 PI's: Completed Carotid: Completed Mapping: N/A Dental: Cleared PFT's: Completed Basename 11/26/11 1112 WBC 9.60 HB 14.0 HCT 41.5 PLT 281 INR 1.0 CREAT 0.60* UA: Normal HCG:N/A ABO/ABO Confirmed: Yes Blood ordered: No SA Swab: Yes - results: Negative Last Dose of Anticoagulation: none Op Note: N/A Pacemaker Check: N/A Consults: none DM: No Cardiac Surgical prep: N/A SIGNATURE: OXANA Swan RN CHECKED BY: CIPRIANO DATE of SERVICE: 11/28/2011 TIME of SERVICE: 2:39 PM discharge planning 11/28/2011 10/22/2013 Overview: 56 yr old female from [place], [place]. PT recommendations: Home with Outpatient Physical Therapy. Patient will need PRN assistance. Constipation 10/22/2013 Overview: 12/04/2011 Will start miralax. 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 -continue fentanyl patch, lidoderm patch, percocet prn. 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 [facility] Surgeon: Ivan Mcfarland M.D. Informed Consent Completed: Yes STS Score: 2.485 CAD: Yes - CAD on Problem List: Yes Is intended procedure a CABG: Yes - is a beta brendon ordered? Yes H & P completed: Yes PA/LAT: Completed CT: Completed MRI: N/A LE US: N/A Cath: Yes - reviewed: Yes Echo:Completed EKG: Completed EF %: 57 PI's: Completed Carotid: Completed Mapping: N/A Dental: Cleared PFT's: Completed Basename 11/26/11 1112 WBC 9.60 HB 14.0 HCT 41.5 PLT 281 INR 1.0 CREAT 0.60* UA: Normal HCG:N/A ABO/ABO Confirmed: Yes Blood ordered: No SA Swab: Yes - results: Negative Last Dose of Anticoagulation: none Op Note: N/A Pacemaker Check: N/A Consults: none DM: No Cardiac Surgical prep: N/A SIGNATURE: OXANA Swan RN CHECKED BY: CIPRIANO DATE of SERVICE: 11/28/2011 TIME of SERVICE: 2:39 PM discharge planning 11/28/2011 10/22/2013 Overview: 56 yr old female from [place], [place]. PT recommendations: Home with Outpatient Physical Therapy. Patient will need PRN assistance. Constipation 10/22/2013 Overview: 12/04/2011 Will start miralax. 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 -continue fentanyl patch, lidoderm patch, percocet prn. 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 [facility] Surgeon: Ivan Mcfarland M.D. Informed Consent Completed: Yes STS Score: 2.485 CAD: Yes - CAD on Problem List: Yes Is intended procedure a CABG: Yes - is a beta brendon ordered? Yes H & P completed: Yes PA/LAT: Completed CT: Completed MRI: N/A LE US: N/A Cath: Yes - reviewed: Yes Echo:Completed EKG: Completed EF %: 57 PI's: Completed Carotid: Completed Mapping: N/A Dental: Cleared PFT's: Completed Basename 11/26/11 1112 WBC 9.60 HB 14.0 HCT 41.5 PLT 281 INR 1.0 CREAT 0.60* UA: Normal HCG:N/A ABO/ABO Confirmed: Yes Blood ordered: No SA Swab: Yes - results: Negative Last Dose of Anticoagulation: none Op Note: N/A Pacemaker Check: N/A Consults: none DM: No Cardiac Surgical prep: N/A SIGNATURE: OXANA Swan RN CHECKED BY: CIPRIANO DATE of SERVICE: 11/28/2011 TIME of SERVICE: 2:39 PM discharge planning 11/28/2011 10/22/2013 Overview: 56 yr old female from [place], [place]. PT recommendations: Home with Outpatient Physical Therapy. Patient will need PRN assistance. Constipation 10/22/2013 Overview: 12/04/2011 Will start miralax. 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 -continue fentanyl patch, lidoderm patch, percocet prn. 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 [facility] Surgeon: Ivan Mcfarland M.D. Informed Consent Completed: Yes STS Score: 2.485 CAD: Yes - CAD on Problem List: Yes Is intended procedure a CABG: Yes - is a beta brendon ordered? Yes H & P completed: Yes PA/LAT: Completed CT: Completed MRI: N/A LE US: N/A Cath: Yes - reviewed: Yes Echo:Completed EKG: Completed EF %: 57 PI's: Completed Carotid: Completed Mapping: N/A Dental: Cleared PFT's: Completed Basename 11/26/11 1112 WBC 9.60 HB 14.0 HCT 41.5 PLT 281 INR 1.0 CREAT 0.60* UA: Normal HCG:N/A ABO/ABO Confirmed: Yes Blood ordered: No SA Swab: Yes - results: Negative Last Dose of Anticoagulation: none Op Note: N/A Pacemaker Check: N/A Consults: none DM: No Cardiac Surgical prep: N/A SIGNATURE: OXANA Swan RN CHECKED BY: CIPRIANO DATE of SERVICE: 11/28/2011 TIME of SERVICE: 2:39 PM discharge planning 11/28/2011 10/22/2013 Overview: 56 yr old female from [place], [place]. PT recommendations: Home with Outpatient Physical Therapy. Patient will need PRN assistance. Constipation 10/22/2013 Overview: 12/04/2011 Will start miralax. 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 -continue fentanyl patch, lidoderm patch, percocet prn. 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 [facility] Surgeon: Ivan Mcfarland M.D. Informed Consent Completed: Yes STS Score: 2.485 CAD: Yes - CAD on Problem List: Yes Is intended procedure a CABG: Yes - is a beta brendon ordered? Yes H & P completed: Yes PA/LAT: Completed CT: Completed MRI: N/A LE US: N/A Cath: Yes - reviewed: Yes Echo:Completed EKG: Completed EF %: 57 PI's: Completed Carotid: Completed Mapping: N/A Dental: Cleared PFT's: Completed Basename 11/26/11 1112 WBC 9.60 HB 14.0 HCT 41.5 PLT 281 INR 1.0 CREAT 0.60* UA: Normal HCG:N/A ABO/ABO Confirmed: Yes Blood ordered: No SA Swab: Yes - results: Negative Last Dose of Anticoagulation: none Op Note: N/A Pacemaker Check: N/A Consults: none DM: No Cardiac Surgical prep: N/A SIGNATURE: OXANA Swan RN CHECKED BY: CIPRIANO DATE of SERVICE: 11/28/2011 TIME of SERVICE: 2:39 PM discharge planning 11/28/2011 10/22/2013 Overview: 56 yr old female from [place], [place]. PT recommendations: Home with Outpatient Physical Therapy. Patient will need PRN assistance. Constipation 10/22/2013 Overview: 12/04/2011 Will start miralax. 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 -continue fentanyl patch, lidoderm patch, percocet prn. 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 [facility] Surgeon: Ivan Mcfarland M.D. Informed Consent Completed: Yes STS Score: 2.485 CAD: Yes - CAD on Problem List: Yes Is intended procedure a CABG: Yes - is a beta brendon ordered? Yes H & P completed: Yes PA/LAT: Completed CT: Completed MRI: N/A LE US: N/A Cath: Yes - reviewed: Yes Echo:Completed EKG: Completed EF %: 57 PI's: Completed Carotid: Completed Mapping: N/A Dental: Cleared PFT's: Completed Basename 11/26/11 1112 WBC 9.60 HB 14.0 HCT 41.5 PLT 281 INR 1.0 CREAT 0.60* UA: Normal HCG:N/A ABO/ABO Confirmed: Yes Blood ordered: No SA Swab: Yes - results: Negative Last Dose of Anticoagulation: none Op Note: N/A Pacemaker Check: N/A Consults: none DM: No Cardiac Surgical prep: N/A SIGNATURE: OXANA Swan RN CHECKED BY: CIPRIANO DATE of SERVICE: 11/28/2011 TIME of SERVICE: 2:39 PM discharge planning 11/28/2011 10/22/2013 Overview: 56 yr old female from [place], [place]. PT recommendations: Home with Outpatient Physical Therapy. Patient will need PRN assistance. Constipation 10/22/2013 Overview: 12/04/2011 Will start miralax. 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 -continue fentanyl patch, lidoderm patch, percocet prn. 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 [facility] Surgeon: Ivan Mcfarland M.D. Informed Consent Completed: Yes STS Score: 2.485 CAD: Yes - CAD on Problem List: Yes Is intended procedure a CABG: Yes - is a beta brendon ordered? Yes H & P completed: Yes PA/LAT: Completed CT: Completed MRI: N/A LE US: N/A Cath: Yes - reviewed: Yes Echo:Completed EKG: Completed EF %: 57 PI's: Completed Carotid: Completed Mapping: N/A Dental: Cleared PFT's: Completed Basename 11/26/11 1112 WBC 9.60 HB 14.0 HCT 41.5 PLT 281 INR 1.0 CREAT 0.60* UA: Normal HCG:N/A ABO/ABO Confirmed: Yes Blood ordered: No SA Swab: Yes - results: Negative Last Dose of Anticoagulation: none Op Note: N/A Pacemaker Check: N/A Consults: none DM: No Cardiac Surgical prep: N/A SIGNATURE: OXANA Swan RN CHECKED BY: CIPRIANO DATE of SERVICE: 11/28/2011 TIME of SERVICE: 2:39 PM discharge planning 11/28/2011 10/22/2013 Overview: 56 yr old female from [place], [place]. PT recommendations: Home with Outpatient Physical Therapy. Patient will need PRN assistance. Constipation 10/22/2013 Overview: 12/04/2011 Will start miralax. 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 -continue fentanyl patch, lidoderm patch, percocet prn. 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 [facility] Surgeon: Ivan Mcfarland M.D. Informed Consent Completed: Yes STS Score: 2.485 CAD: Yes - CAD on Problem List: Yes Is intended procedure a CABG: Yes - is a beta brendon ordered? Yes H & P completed: Yes PA/LAT: Completed CT: Completed MRI: N/A LE US: N/A Cath: Yes - reviewed: Yes Echo:Completed EKG: Completed EF %: 57 PI's: Completed Carotid: Completed Mapping: N/A Dental: Cleared PFT's: Completed Basename 11/26/11 1112 WBC 9.60 HB 14.0 HCT 41.5 PLT 281 INR 1.0 CREAT 0.60* UA: Normal HCG:N/A ABO/ABO Confirmed: Yes Blood ordered: No SA Swab: Yes - results: Negative Last Dose of Anticoagulation: none Op Note: N/A Pacemaker Check: N/A Consults: none DM: No Cardiac Surgical prep: N/A SIGNATURE: OXANA Swan RN CHECKED BY: CIPRIANO DATE of SERVICE: 11/28/2011 TIME of SERVICE: 2:39 PM discharge planning 11/28/2011 10/22/2013 Overview: 56 yr old female from [place], [place]. PT recommendations: Home with Outpatient Physical Therapy. Patient will need PRN assistance. Constipation 10/22/2013 Overview: 12/04/2011 Will start miralax. 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 -continue fentanyl patch, lidoderm patch, percocet prn. 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 [facility] Surgeon: Ivan Mcfarland M.D. Informed Consent Completed: Yes STS Score: 2.485 CAD: Yes - CAD on Problem List: Yes Is intended procedure a CABG: Yes - is a beta brendon ordered? Yes H & P completed: Yes PA/LAT: Completed CT: Completed MRI: N/A LE US: N/A Cath: Yes - reviewed: Yes Echo:Completed EKG: Completed EF %: 57 PI's: Completed Carotid: Completed Mapping: N/A Dental: Cleared PFT's: Completed Basename 11/26/11 1112 WBC 9.60 HB 14.0 HCT 41.5 PLT 281 INR 1.0 CREAT 0.60* UA: Normal HCG:N/A ABO/ABO Confirmed: Yes Blood ordered: No SA Swab: Yes - results: Negative Last Dose of Anticoagulation: none Op Note: N/A Pacemaker Check: N/A Consults: none DM: No Cardiac Surgical prep: N/A SIGNATURE: OXANA Swan RN CHECKED BY: CIPRIANO DATE of SERVICE: 11/28/2011 TIME of SERVICE: 2:39 PM discharge planning 11/28/2011 10/22/2013 Overview: 56 yr old female from [place], [place]. PT recommendations: Home with Outpatient Physical Therapy. Patient will need PRN assistance. Constipation 10/22/2013 Overview: 12/04/2011 Will start miralax. 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 -continue fentanyl patch, lidoderm patch, percocet prn. 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 [facility] Surgeon: Ivan Mcfarland M.D. Informed Consent Completed: Yes STS Score: 2.485 CAD: Yes - CAD on Problem List: Yes Is intended procedure a CABG: Yes - is a beta brendon ordered? Yes H & P completed: Yes PA/LAT: Completed CT: Completed MRI: N/A LE US: N/A Cath: Yes - reviewed: Yes Echo:Completed EKG: Completed EF %: 57 PI's: Completed Carotid: Completed Mapping: N/A Dental: Cleared PFT's: Completed Basename 11/26/11 1112 WBC 9.60 HB 14.0 HCT 41.5 PLT 281 INR 1.0 CREAT 0.60* UA: Normal HCG:N/A ABO/ABO Confirmed: Yes Blood ordered: No SA Swab: Yes - results: Negative Last Dose of Anticoagulation: none Op Note: N/A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 Documentation: Indications: Pain Procedure Details: Location: Shoulder Site: R subacromial bursa Prep: patient was prepped and draped in usual sterile fashion Needle size: 22 G Medications: 40 mg triamcinolone acetonide 40 mg/mL Anesthetic used: Lidocaine 1% Anesthetic amount (mL): 2 Patient tolerance: Patient tolerated the procedure well with no immediate complications documented in this encounter* Dragan Royal MD - 08/01/2020 3:05 PM EDT Dictation on: 08/01/2020 3:09 PM by: DRAGAN ROYAL [[id number]] documented in this encounter* Dragan Royal MD - 10/17/2020 2:14 PM EST Maricel is seen for followup of her right reverse total shoulder replacement. Seems to be doing quite well. Does not have any significant pain now. She can forward elevate her arm 50 degrees at least and seems to have good control. She can just get her hand to her hip pocket. Will have her work on range of motion, light activities, and I will see her back in 4 weeks. X-rays of her right shoulder today reveal a reverse total shoulder replacement, seems to be in good position without complications. documented in this encounter* Dragan Royal MD - 11/20/2020 4:33 PM EST Dictation on: 11/20/2020 4:35 PM by: DRAGAN ROYAL [[id number]] documented in this encounter* Naina Dela Cruz MA - 09/13/2020 2:39 PM EST Review of Systems Constitution: Negative for diaphoresis, malaise/fatigue, weight gain and weight loss. HENT: Negative for hearing loss, nosebleeds and tinnitus. Eyes: Negative for blurred vision and visual disturbance. Cardiovascular: Negative for chest pain, claudication, cyanosis, dyspnea on exertion, irregular heartbeat, leg swelling, near-syncope, orthopnea, palpitations, paroxysmal nocturnal dyspnea and syncope. Respiratory: Negative for hemoptysis, shortness of breath and snoring. Endocrine: Negative for cold intolerance and heat intolerance. Hematologic/Lymphatic: Does not bruise/bleed easily. Skin: Negative for flushing, poor wound healing and rash. Musculoskeletal: Negative for back pain, muscle weakness and myalgias. Gastrointestinal: Negative for abdominal pain, change in bowel habit, melena, nausea and vomiting. Genitourinary: Negative for decreased libido and hematuria. Neurological: Negative for loss of balance and numbness. Psychiatric/Behavioral: Negative for memory loss. The patient is not nervous/anxious. documented in this encounter* Dragan Royal MD - 06/23/2019 4:44 PM EDT Associated Order(s): MD Malhotra Injection/Arthrocentesis: R radiocarpal Post-Procedure Diagnose(s): Primary osteoarthritis of right wrist Jelizabeth Injection/Arthrocentesis: R radiocarpal Performed by: Dragan Royal MD Authorized by: Dragan Royal MD Supporting Documentation: Indications: Pain Procedure Details: Location: Wrist Site: R radiocarpal Prep: patient was prepped and draped in usual sterile fashion Needle size: 22 G Medications: 40 mg triamcinolone acetonide 40 mg/mL (20mg) Anesthetic used:: Lidocaine 1% Anesthetic amount (mL): 1 Patient tolerance: Patient tolerated the procedure well with no immediate complications * Dragan Royal MD - 06/23/2019 4:41 PM EDT Associated Order(s): LG Jt Injection/Arthrocentesis: R glenohumeral Post-Procedure Diagnose(s): Right rotator cuff tear arthropathy Dictation on: 06/23/2019 4:43 PM by: DRAGAN ROYAL [[id number]] LG Jt Injection/Arthrocentesis: R glenohumeral Performed by: Dragan Royal MD Authorized by: Dragan Royal MD Supporting Documentation: Indications: Pain Procedure Details: Location: Shoulder Site: R glenohumeral Prep: patient was prepped and draped in usual sterile fashion Needle size: 22 G Medications: 40 mg triamcinolone acetonide 40 mg/mL Anesthetic used: Lidocaine 1% Anesthetic amount (mL): 2 Patient tolerance: Patient tolerated the procedure well with no immediate complications documented in this encounter* Dragan Royal MD - 02/14/2021 3:22 PM EDT Dictation on: 02/14/2021 3:24 PM by: DRAGAN ROYAL [[id number]] documented in this encounter Instructions * Patient Instructions* Naina Dela Cruz MA - 09/13/2020 2:15 PM EST How to contact your Care Team: Provider: Dr. Mansfield Nurse: Crissy Najera RN In case of an emergency please call 911. REFILLS: When in need for refills please call your care team or the office at [phone] Please include medication name, pharmacy name, and specify 30-day or 90-day supply. Please check with your pharmacy within 24 hours of request for your refill. You must follow up as directed to continue current refills. Thank you! documented in this encounter Medications Administered Section Active Administered Medications - up to 3 most recent administrations Medication Order MAR Action Action Date Dose Rate Site fluorescein-benoxinate 0.25-0.4 % 1 Drop (FLURESS) 1 Drop, BOTH EYES, DIRECTED, Starting on Fri07/08/22 at 1330, Until Fri07/09/22 at 0129, Administer for applanation tonometry. In the event of a Fluress shortage, administer Nancy-Fluor 1 drop into both eyes as directed for applanation tonometry Given 07/08/2022 1:30 PM EDT 1 Drop PHENYLephrine 2.5 % 1 Drop (AK-DILATE, ALL-SYNEPHRINE) 1 Drop, BOTH EYES, DIRECTED, Starting on Fri07/08/22 at 1330, Until Fri07/09/22 at 0129, Administer for dilation PROTECT FROM LIGHT Given 07/08/2022 1:30 PM EDT 1 Drop proparacaine 0.5 % 1 Drop (ALCAINE) 1 Drop, BOTH EYES, DIRECTED, Starting on Fri07/08/22 at 1330, Until Fri07/09/22 at 0129, Administer for pneumo tonometry, tonopen tonometry, or pachymetry. In the event of a proparacaine shortage, administer tetracaine 0.5% ophthalmic drops 1 drop in the left eye as directed for pneumo tonometry, tonopen tonometry, or pachymetry Given 07/08/2022 1:30 PM EDT 1 Drop tropicamide 1 % 1 Drop (MYDRIACYL) 1 Drop, BOTH EYES, DIRECTED, Starting on Fri07/08/22 at 1330, Until Fri07/09/22 at 0129, Administer for dilation Given 07/08/2022 1:30 PM EDT 1 Drop Active Administered Medications - up to 3 most recent administrations Medication Order MAR Action Action Date Dose Rate Site fluorescein-benoxinate 0.25-0.4 % 1 Drop (FLURESS) 1 Drop, BOTH EYES, DIRECTED, Starting on Fri07/22/22 at 1400, Until Fri07/23/22 at 0159, Administer for applanation tonometry. In the event of a Fluress shortage, administer Nancy-Fluor 1 drop into both eyes as directed for applanation tonometry Given 07/22/2022 2:00 PM EDT 1 Drop Active Administered Medications - up to 3 most recent administrations Medication Order MAR Action Action Date Dose Rate Site fluorescein-benoxinate 0.25-0.4 % 1 Drop (FLURESS) 1 Drop, BOTH EYES, DIRECTED, Starting on Fri07/26/22 at 1600, Until 07/27/22 at 0359, Administer for applanation tonometry. In the event of a Fluress shortage, administer Nancy-Fluor 1 drop into both eyes as directed for applanation tonometry Given 07/26/2022 3:53 PM EDT 1 Drop proparacaine 0.5 % 1 Drop (ALCAINE) 1 Drop, BOTH EYES, DIRECTED, Starting on Fri07/26/22 at 1600, Until 07/27/22 at 0359, Administer for pneumo tonometry, tonopen tonometry, or pachymetry. In the event of a proparacaine shortage, administer tetracaine 0.5% ophthalmic drops 1 drop in the left eye as directed for pneumo tonometry, tonopen tonometry, or pachymetry Given 07/26/2022 3:53 PM EDT 1 Drop Inactive Administered Medications - up to 3 most recent administrations Medication Order MAR Action Action Date Dose Rate Site fluorescein-benoxinate 0.25-0.4 % 1 Drop (FLURESS) 1 Drop, BOTH EYES, DIRECTED, Starting on 11/01/22 at 1430, Until 11/02/22 at 0229, Administer for applanation tonometry. In the event of a Fluress shortage, administer Nancy-Fluor 1 drop into both eyes as directed for applanation tonometry Given 11/01/2022 2:17 PM EST 1 Drop proparacaine 0.5 % 1 Drop (ALCAINE) 1 Drop, BOTH EYES, DIRECTED, Starting on Fri11/01/22 at 1430, Until 11/02/22 at 0229, Administer for pneumo tonometry, tonopen tonometry, or pachymetry. In the event of a proparacaine shortage, administer tetracaine 0.5% ophthalmic drops 1 drop in the left eye as directed for pneumo tonometry, tonopen tonometry, or pachymetry Given 11/01/2022 2:17 PM EST 1 Drop Inactive Administered Medications - up to 3 most recent administrations Medication Order MAR Action Action Date Dose Rate Site proparacaine 0.5 % 1 Drop (ALCAINE) 1 Drop, BOTH EYES, DIRECTED, Starting on Fri11/12/22 at 1700, Until Fri11/13/22 at 0459, Administer for pneumo tonometry, tonopen tonometry, or pachymetry. In the event of a proparacaine shortage, administer tetracaine 0.5% ophthalmic drops 1 drop in the left eye as directed for pneumo tonometry, tonopen tonometry, or pachymetry Given 11/12/2022 5:00 PM EST 1 Drop Additional Source Comments INFORMATION SOURCE (unrecogn ized section and content) DATE CREATED AUTHOR AUTHOR'S ORGANIZ ATION 05/30/[address] [facility] DATE CREATED AUTHOR AUTHOR'S ORGANIZ ATION 09/21/2019 [facility] DATE CREATED AUTHOR AUTHOR'S ORGANIZ ATION 09/29/2020 [facility] DATE CREATED AUTHOR AUTHOR'S ORGANIZ ATION 03/26/2021 [facility] DATE CREATED AUTHOR AUTHOR'S ORGANIZ ATION 12/26/2021 [facility] DATE CREATED AUTHOR AUTHOR'S ORGANIZ ATION 01/19/2022 [facility] DATE CREATED AUTHOR AUTHOR'S ORGANIZ ATION 09/03/2022 [facility] DATE CREATED AUTHOR AUTHOR'S ORGANIZ ATION 12/05/2022 [facility] DATE CREATED AUTHOR AUTHOR'S ORGANIZ ATION 01/04/2023 [facility] DATE CREATED AUTHOR AUTHOR'S ORGANIZ ATION 02/14/2023 [facility] DATE CREATED AUTHOR AUTHOR'S ORGANIZ ATION 10/26/2023 [facility] Reason for Visit (unrecogniz ed section and content) Reason Comments Results review MRI Reason Comments Pain Reason Comments Pain Follow-up Status Reason Specialty Diagnoses / Procedures Referre d By Contact Referred To Contact Closed Cardiology Diagnoses Bilateral carotid artery stenosis Procedures Carotid Duplex Robert Mansfield MD [address] [facility] [address] [place] [address] Status Reason Specialty Diagnoses / Procedures Re ferred By Contact Referred To Contact Closed Cardiology Diagnoses S/P aortic valve replacement with bioprosthetic valve Procedures Echocardiogram complete Robert Mansfield MD [address] [facility] [address] [place] [address] Status Reason Specialty Diagnoses / Procedures Referred By Contact Referred To Contact New Request Radiology Diagnoses Coronary artery disease involving coronary bypass graft of peoria heart without angina pectoris Dyspnea on exertion Procedures NM Myocardial Perfusion Study Single - Stress Only NM Myocardial Perfusion Multiple SPECT Robert Mansfield MD [address] [facility] [address] [place] [address] Reason Comments Suture / Staple Removal Wound Check Reason Comments Follow-up Reason Comments Pre-op Exam rt TSR 10/02 Reason Comments Follow-up Pain Reason Comments Pre-Op Visit Specialty Diagnoses / Procedures Referred By Contac t Referred To Contact Diagnoses Ductal carcinoma in situ (DCIS) of left breast Family hx-breast malignancy Preoperative examination Coronary artery disease involving peoria coronary artery of peoria heart without angina pectoris Primary hypertension Occlusion of right carotid artery Hemiparesis due to old subarachnoid hemorrhage (HCC) Tobacco abuse disorder Procedures [place] [address] [place] [address] Referral ID Status Reason Start Date Expiration Date Visits Requested Visits Authorized [id number] Ref Not Required PCP Requested Referral 11/29/2021 02/27/2022 1 1 Reason Comments Radio Gen A21 Reason Comments Pre-Op Exam Reason Comments PACC Cradiac clearance Reason Comments Results REQUESTING CARDIAC C LEARANCE Reason Comments Refill Request Reason Comments Appointment Reason Comments Patient Update Reason Onset Date Comments Refill Request 03/11/2022 Reason Comments fax request to Dr. Cuba chavez Reason Onset Date Comments Refill Request 03/28/2022 Reason Onset Date Comments Refill Request 04/05/2022 Reason Comments Physical Specialty Diagnoses / Procedures Referred By Contac t Referred To Contact Family Practice / FAMILY MEDICINE Diagnoses annual exam Procedures OFFICE/OUTPATIENT ESTABLISHED HIGH MDM 40-54 MIN 4C EST WELL Self Yang Bridges MD [address] [place] [address] Referral ID Status Reason Start Date Expiration Date Visits Re quested Visits Authorized [id number] Closed 04/23/2022 11/09/2022 1 1 Reason Onset Date Comments Refill Request 04/25/2022 Reason Comments Referral Request Reason Comments Declined referral [facility] Reason Comments Referral Information Declined Referral; [facility] Reason Comments Medication Request Reason Onset Date Comments CDM Enrollment 05/24/2022 [facility] Enrollme nt Sent MCM Reason Onset Date Comments CDM Enrollment 05/27/2022 [facility] Enrollme nt Outreach # 1 Reason Onset Date Comments CDM Outreach 05/27/2022 [facility] Telephon ic Outreach Reason Onset Date Comments CDM Outreach [facility] 06/18/2022 In[facility] g[facility] Telephonic Outreach [facility] Reason Onset Date Comments CDM Outreach [facility] 06/19/2022 [facility] Telephonic Outreach [facility] Call #2 Reason Onset Date Comments CDM Outreach 06/19/2022 [facility] Telephon ic Outreach Reason Comments Care Coordination Reason Onset Date Comments CDM Outreach 06/26/2022 Incoming call fr om Patient Reason Comments Blurred Vision Both Eyes Difficulty Reading Both Eyes Glare Reason Comments Follow-up Overdue f/u, Patient last seen in 2019, without medication list/bottles Reason Comments Cataract Follow Up Specialty Diagnoses / Procedures Referred By Francisca johnson Referred To Contact Radiology / RADIO BONE DENSITY [facility] Diagnoses BONE DENSITY Procedures BONE DENSITY ADULT 225 Belinda Lama MD [address] [place] [address] Radio Bone Density [facility] [address] [place] [address] Referral ID Status Reason Start Date Expiration Date Visits Re quested Visits Authorized [id number] Closed 07/23/2022 11/09/2022 1 1 Reason Comments Blurred Vision Right Eye Difficulty Reading Right Eye Glare Halos Right Eye Post-op Cataract OS Status Post Traditio nal Cataract Surgery with PC IOL - Left eye (07/25/2022) Reason Onset Date Comments Medication Refill 08/01/2022 Reason Onset Date Comments CDM Outreach 08/16/2022 [facility] Telephon ic Outreach Reason Comments Established Patient Reason Comments renewal form for disability license [place] Reason Comments Handicap Placard Reason Comments Patient Question Reason Comments BMV form Reason Comments Diarrhea Reason Comments Blurred Vision Right Eye Difficulty Reading Right Eye [facility] Right Eye Post-op Cataract OS 07/25/2022 Reason Comments Post-op Cataract OD Status Post Traditio nal Cataract Surgery with PC IOL - Right eye (10/31/2022) Reason Comments Post-op Cataract OD 10/31/2022 Reason Onset Date Comments Medication Refill 11/14/2022 Reason Onset Date Comments Community Monitoring Outreach 11/19/2022 CD M Telephonic Outreach Reason Onset Date Comments Refill Request 12/26/2022 Reason Onset Date Comments community monitoring outreach 01/13/2023 CD M outreach telephonic Reason Onset Date Comments community monitoring outreach 01/14/2023 CD M outreach telephonic Reason Onset Date Comments Community Monitoring Outreach 02/17/2023 CD M Telephonic Outreach Reason Onset Date Comments Community Monitoring Outreach 02/18/2023 CD M Telephonic Outreach Reason Comments Rx Refills Reason Comments Smoking Cessation Reason Onset Date Comments Community Monitoring Outreach 03/14/2023 CD M Telephonic Outreach Reason Onset Date Comments Opened In Error 04/14/2023 Opened in Error - Duplicate Encounter Reason Onset Date Comments [facility] 04/14/2023 CD M Telephonic Outreach Reason Comments Wellness Reason Comments Results Labs Reason Onset Date Comments community monitoring outreach 05/08/2023 CD M telephonic Reason Onset Date Comments community monitoring outreach 06/06/2023 CD M telephonic Reason Onset Date Comments [facility] [facility] [place] [facility] 07/07/2023 CD M telephonic Reason Onset Date Comments [facility] [place] [facility] [place] [facility] 07/16/2023 CD M telephonic Reason Onset Date Comments Escalation of Care 07/16/2023 Reason Onset Date Comments [facility] [place] [facility] [place] [facility] 07/17/2023 CD M escalation follow up Reason Onset Date Comments [facility] [place] [facility] [place] [facility] 08/28/2023 CD M telephonic Reason Comments Disability Placard Reason Comments Established Patient Follow-Up Reason Onset Date Comments F/U 6 Month Immunizations 09/22/2023 Flu vaccination Reason Onset Date Comments [facility] [place] [facility] [place] [facility] 09/25/2023 CD M telephonic Reason Onset Date Comments [facility] [place] [facility] [place] [facility] 09/26/2023 CD M telephonic <item><item><item><item> Privacy Markings (unrecogniz ed section and content) Section Author: Vanna Murphy PROHIBITION ON REDISCLOSURE OF CONFIDENTIAL INFORMATION This notice accompanies a disclosure of information concerning a client made to you with the consent of such client. Section Author: Vanna Murphy PROHIBITION ON REDISCLOSURE OF CONFIDENTIAL INFORMATION This notice accompanies a disclosure of information concerning a client made to you with the consent of such client. Section Author: Vanna Murphy PROHIBITION ON REDISCLOSURE OF CONFIDENTIAL INFORMATION This notice accompanies a disclosure of information concerning a client made to you with the consent of such client. Section Author: Vanna Murphy PROHIBITION ON REDISCLOSURE OF CONFIDENTIAL INFORMATION This notice accompanies a disclosure of information concerning a client made to you with the consent of such client. Source Comments (unrecognize d section and content) In the event this informatio n is protected by the Federal Confidentiality of Alcohol and Drug Abuse Patient Records regulations: The Federal rules restrict any use of the information to criminally investigate or prosecute any alcohol or drug abuse patient.[facility] HealthIn the event this information is protected by the Federal Confidentiality of Alcohol and Drug Abuse Patient Records regulations: The Federal rules restrict any use of the information to criminally investigate or prosecute any alcohol or drug abuse patient.[facility] HealthIn the event this information is protected by the Federal Confidentiality of Alcohol and Drug Abuse Patient Records regulations: The Federal rules restrict any use of the information to criminally investigate or prosecute any alcohol or drug abuse patient.[facility] HealthIn the event this information is protected by the Federal Confidentiality of Alcohol and Drug Abuse Patient Records regulations: The Federal rules restrict any use of the information to criminally investigate or prosecute any alcohol or drug abuse patient.[facility] HealthIn the event this information is protected by the Federal Confidentiality of Alcohol and Drug Abuse Patient Records regulations: The Federal rules restrict any use of the information to criminally investigate or prosecute any alcohol or drug abuse patient.[facility] HealthIn the event this information is protected by the Federal Confidentiality of Alcohol and Drug Abuse Patient Records regulations: The Federal rules restrict any use of the information to criminally investigate or prosecute any alcohol or drug abuse patient.[facility] HealthIn the event this information is protected by the Federal Confidentiality of Alcohol and Drug Abuse Patient Records regulations: The Federal rules restrict any use of the information to criminally investigate or prosecute any alcohol or drug abuse patient.[facility] HealthIn the event this information is protected by the Federal Confidentiality of Alcohol and Drug Abuse Patient Records regulations: The Federal rules restrict any use of the information to criminally investigate or prosecute any alcohol or drug abuse patient.[facility] HealthIn the event this information is protected by the Federal Confidentiality of Alcohol and Drug Abuse Patient Records regulations: The Federal rules restrict any use of the information to criminally investigate or prosecute any alcohol or drug abuse patient.[facility] HealthIn the event this information is protected by the Federal Confidentiality of Alcohol and Drug Abuse Patient Records regulations: The Federal rules restrict any use of the information to criminally investigate or prosecute any alcohol or drug abuse patient.[facility] HealthIn the event this information is protected by the Federal Confidentiality of Alcohol and Drug Abuse Patient Records regulations: The Federal rules restrict any use of the information to criminally investigate or prosecute any alcohol or drug abuse patient.[facility] HealthIn the event this information is protected by the Federal Confidentiality of Alcohol and Drug Abuse Patient Records regulations: The Federal rules restrict any use of the information to criminally investigate or prosecute any alcohol or drug abuse patient.[facility] HealthIn the event this information is protected by the Federal Confidentiality of Alcohol and Drug Abuse Patient Records regulations: The Federal rules restrict any use of the information to criminally investigate or prosecute any alcohol or drug abuse patient.[facility] HealthIn the event this information is protected by the Federal Confidentiality of Alcohol and Drug Abuse Patient Records regulations: The Federal rules restrict any use of the information to criminally investigate or prosecute any alcohol or drug abuse patient.[facility] HealthIn the event this information is protected by the Federal Confidentiality of Alcohol and Drug Abuse Patient Records regulations: The Federal rules restrict any use of the information to criminally investigate or prosecute any alcohol or drug abuse patient.[facility] HealthIn the event this information is protected by the Federal Confidentiality of Alcohol and Drug Abuse Patient Records regulations: The Federal rules restrict any use of the information to criminally investigate or prosecute any alcohol or drug abuse patient.[facility] HealthIn the event this information is protected by the Federal Confidentiality of Alcohol and Drug Abuse Patient Records regulations: The Federal rules restrict any use of the information to criminally investigate or prosecute any alcohol or drug abuse patient.[facility] HealthIn the event this information is protected by the Federal Confidentiality of Alcohol and Drug Abuse Patient Records regulations: The Federal rules restrict any use of the information to criminally investigate or prosecute any alcohol or drug abuse patient.[facility] HealthIn the event this information is protected by the Federal Confidentiality of Alcohol and Drug Abuse Patient Records regulations: The Federal rules restrict any use of the information to criminally investigate or prosecute any alcohol or drug abuse patient.[facility] HealthIn the event this information is protected by the Federal Confidentiality of Alcohol and Drug Abuse Patient Records regulations: The Federal rules restrict any use of the information to criminally investigate or prosecute any alcohol or drug abuse patient.[facility] HealthIn the event this information is protected by the Federal Confidentiality of Alcohol and Drug Abuse Patient Records regulations: The Federal rules restrict any use of the information to criminally investigate or prosecute any alcohol or drug abuse patient.[facility] HealthIn the event this information is protected by the Federal Confidentiality of Alcohol and Drug Abuse Patient Records regulations: The Federal rules restrict any use of the information to criminally investigate or prosecute any alcohol or drug abuse patient.[facility] HealthIn the event this information is protected by the Federal Confidentiality of Alcohol and Drug Abuse Patient Records regulations: The Federal rules restrict any use of the information to criminally investigate or prosecute any alcohol or drug abuse patient.[facility] HealthIn the event this information is protected by the Federal Confidentiality of Alcohol and Drug Abuse Patient Records regulations: The Federal rules restrict any use of the information to criminally investigate or prosecute any alcohol or drug abuse patient.[facility] HealthIn the event this information is protected by the Federal Confidentiality of Alcohol and Drug Abuse Patient Records regulations: The Federal rules restrict any use of the information to criminally investigate or prosecute any alcohol or drug abuse patient.[facility] HealthIn the event this information is protected by the Federal Confidentiality of Alcohol and Drug Abuse Patient Records regulations: The Federal rules restrict any use of the information to criminally investigate or prosecute any alcohol or drug abuse patient.[facility] HealthIn the event this information is protected by the Federal Confidentiality of Alcohol and Drug Abuse Patient Records regulations: The Federal rules restrict any use of the information to criminally investigate or prosecute any alcohol or drug abuse patient.[facility] HealthIn the event this information is protected by the Federal Confidentiality of Alcohol and Drug Abuse Patient Records regulations: The Federal rules restrict any use of the information to criminally investigate or prosecute any alcohol or drug abuse patient.[facility] HealthIn the event this information is protected by the Federal Confidentiality of Alcohol and Drug Abuse Patient Records regulations: The Federal rules restrict any use of the information to criminally investigate or prosecute any alcohol or drug abuse patient.[facility] HealthIn the event this information is protected by the Federal Confidentiality of Alcohol and Drug Abuse Patient Records regulations: The Federal rules restrict any use of the information to criminally investigate or prosecute any alcohol or drug abuse patient.[facility] HealthIn the event this information is protected by the Federal Confidentiality of Alcohol and Drug Abuse Patient Records regulations: The Federal rules restrict any use of the information to criminally investigate or prosecute any alcohol or drug abuse patient.[facility] HealthIn the event this information is protected by the Federal Confidentiality of Alcohol and Drug Abuse Patient Records regulations: The Federal rules restrict any use of the information to criminally investigate or prosecute any alcohol or drug abuse patient.[facility] HealthIn the event this information is protected by the Federal Confidentiality of Alcohol and Drug Abuse Patient Records regulations: The Federal rules restrict any use of the information to criminally investigate or prosecute any alcohol or drug abuse patient.[facility] HealthIn the event this information is protected by the Federal Confidentiality of Alcohol and Drug Abuse Patient Records regulations: The Federal rules restrict any use of the information to criminally investigate or prosecute any alcohol or drug abuse patient.[facility] HealthIn the event this information is protected by the Federal Confidentiality of Alcohol and Drug Abuse Patient Records regulations: The Federal rules restrict any use of the information to criminally investigate or prosecute any alcohol or drug abuse patient.[facility] HealthIn the event this information is protected by the Federal Confidentiality of Alcohol and Drug Abuse Patient Records regulations: The Federal rules restrict any use of the information to criminally investigate or prosecute any alcohol or drug abuse patient.[facility] HealthIn the event this information is protected by the Federal Confidentiality of Alcohol and Drug Abuse Patient Records regulations: The Federal rules restrict any use of the information to criminally investigate or prosecute any alcohol or drug abuse patient.[facility] HealthIn the event this information is protected by the Federal Confidentiality of Alcohol and Drug Abuse Patient Records regulations: The Federal rules restrict any use of the information to criminally investigate or prosecute any alcohol or drug abuse patient.[facility] HealthIn the event this information is protected by the Federal Confidentiality of Alcohol and Drug Abuse Patient Records regulations: The Federal rules restrict any use of the information to criminally investigate or prosecute any alcohol or drug abuse patient.[facility] HealthIn the event this information is protected by the Federal Confidentiality of Alcohol and Drug Abuse Patient Records regulations: The Federal rules restrict any use of the information to criminally investigate or prosecute any alcohol or drug abuse patient.[facility] ClinicIn the event this information is protected by the Federal Confidentiality of Alcohol and Drug Abuse Patient Records regulations: The Federal rules restrict any use of the information to criminally investigate or prosecute any alcohol or drug abuse patient.[facility] HealthIn the event this information is protected by the Federal Confidentiality of Alcohol and Drug Abuse Patient Records regulations: The Federal rules restrict any use of the information to criminally investigate or prosecute any alcohol or drug abuse patient.[facility] HealthIn the event this information is protected by the Federal Confidentiality of Alcohol and Drug Abuse Patient Records regulations: The Federal rules restrict any use of the information to criminally investigate or prosecute any alcohol or drug abuse patient.[facility] HealthIn the event this information is protected by the Federal Confidentiality of Alcohol and Drug Abuse Patient Records regulations: The Federal rules restrict any use of the information to criminally investigate or prosecute any alcohol or drug abuse patient.[facility] HealthIn the event this information is protected by the Federal Confidentiality of Alcohol and Drug Abuse Patient Records regulations: The Federal rules restrict any use of the information to criminally investigate or prosecute any alcohol or drug abuse patient.[facility] HealthIn the event this information is protected by the Federal Confidentiality of Alcohol and Drug Abuse Patient Records regulations: The Federal rules restrict any use of the information to criminally investigate or prosecute any alcohol or drug abuse patient.[facility] HealthIn the event this information is protected by the Federal Confidentiality of Alcohol and Drug Abuse Patient Records regulations: The Federal rules restrict any use of the information to criminally investigate or prosecute any alcohol or drug abuse patient.[facility] HealthIn the event this information is protected by the Federal Confidentiality of Alcohol and Drug Abuse Patient Records regulations: The Federal rules restrict any use of the information to criminally investigate or prosecute any alcohol or drug abuse patient.[facility] HealthIn the event this information is protected by the Federal Confidentiality of Alcohol and Drug Abuse Patient Records regulations: The Federal rules restrict any use of the information to criminally investigate or prosecute any alcohol or drug abuse patient.[facility] HealthIn the event this information is protected by the Federal Confidentiality of Alcohol and Drug Abuse Patient Records regulations: The Federal rules restrict any use of the information to criminally investigate or prosecute any alcohol or drug abuse patient.[facility] HealthIn the event this information is protected by the Federal Confidentiality of Alcohol and Drug Abuse Patient Records regulations: The Federal rules restrict any use of the information to criminally investigate or prosecute any alcohol or drug abuse patient.[facility] HealthIn the event this information is protected by the Federal Confidentiality of Alcohol and Drug Abuse Patient Records regulations: The Federal rules restrict any use of the information to criminally investigate or prosecute any alcohol or drug abuse patient.[facility] HealthIn the event this information is protected by the Federal Confidentiality of Alcohol and Drug Abuse Patient Records regulations: The Federal rules restrict any use of the information to criminally investigate or prosecute any alcohol or drug abuse patient.[facility] HealthIn the event this information is protected by the Federal Confidentiality of Alcohol and Drug Abuse Patient Records regulations: The Federal rules restrict any use of the information to criminally investigate or prosecute any alcohol or drug abuse patient.[facility] HealthIn the event this information is protected by the Federal Confidentiality of Alcohol and Drug Abuse Patient Records regulations: The Federal rules restrict any use of the information to criminally investigate or prosecute any alcohol or drug abuse patient.[facility] HealthIn the event this information is protected by the Federal Confidentiality of Alcohol and Drug Abuse Patient Records regulations: The Federal rules restrict any use of the information to criminally investigate or prosecute any alcohol or drug abuse patient.[facility] HealthIn the event this information is protected by the Federal Confidentiality of Alcohol and Drug Abuse Patient Records regulations: The Federal rules restrict any use of the information to criminally investigate or prosecute any alcohol or drug abuse patient.[facility] HealthIn the event this information is protected by the Federal Confidentiality of Alcohol and Drug Abuse Patient Records regulations: The Federal rules restrict any use of the information to criminally investigate or prosecute any alcohol or drug abuse patient.[facility] HealthIn the event this information is protected by the Federal Confidentiality of Alcohol and Drug Abuse Patient Records regulations: The Federal rules restrict any use of the information to criminally investigate or prosecute any alcohol or drug abuse patient.[facility] HealthIn the event this information is protected by the Federal Confidentiality of Alcohol and Drug Abuse Patient Records regulations: The Federal rules restrict any use of the information to criminally investigate or prosecute any alcohol or drug abuse patient.[facility] HealthIn the event this information is protected by the Federal Confidentiality of Alcohol and Drug Abuse Patient Records regulations: The Federal rules restrict any use of the information to criminally investigate or prosecute any alcohol or drug abuse patient.[facility] HealthIn the event this information is protected by the Federal Confidentiality of Alcohol and Drug Abuse Patient Records regulations: The Federal rules restrict any use of the information to criminally investigate or prosecute any alcohol or drug abuse patient.[facility] HealthIn the event this information is protected by the Federal Confidentiality of Alcohol and Drug Abuse Patient Records regulations: The Federal rules restrict any use of the information to criminally investigate or prosecute any alcohol or drug abuse patient.[facility] HealthIn the event this information is protected by the Federal Confidentiality of Alcohol and Drug Abuse Patient Records regulations: The Federal rules restrict any use of the information to criminally investigate or prosecute any alcohol or drug abuse patient.[facility] HealthIn the event this information is protected by the Federal Confidentiality of Alcohol and Drug Abuse Patient Records regulations: The Federal rules restrict any use of the information to criminally investigate or prosecute any alcohol or drug abuse patient.[facility] HealthIn the event this information is protected by the Federal Confidentiality of Alcohol and Drug Abuse Patient Records regulations: The Federal rules restrict any use of the information to criminally investigate or prosecute any alcohol or drug abuse patient.[facility] HealthIn the event this information is protected by the Federal Confidentiality of Alcohol and Drug Abuse Patient Records regulations: The Federal rules restrict any use of the information to criminally investigate or prosecute any alcohol or drug abuse patient.[facility] HealthIn the event this information is protected by the Federal Confidentiality of Alcohol and Drug Abuse Patient Records regulations: The Federal rules restrict any use of the information to criminally investigate or prosecute any alcohol or drug abuse patient.[facility] HealthIn the event this information is protected by the Federal Confidentiality of Alcohol and Drug Abuse Patient Records regulations: The Federal rules restrict any use of the information to criminally investigate or prosecute any alcohol or drug abuse patient.[facility] HealthIn the event this information is protected by the Federal Confidentiality of Alcohol and Drug Abuse Patient Records regulations: The Federal rules restrict any use of the information to criminally investigate or prosecute any alcohol or drug abuse patient.[facility] HealthIn the event this information is protected by the Federal Confidentiality of Alcohol and Drug Abuse Patient Records regulations: The Federal rules restrict any use of the information to criminally investigate or prosecute any alcohol or drug abuse patient.[facility] Care Teams (unrecognized sec tion and content) Taxic[employer] Coordinator Relationship Specialty Start Date End Date Yang Bridges MD [address] [place] [address] PCP - General 05/20/07 Og Fry MD [address] [place] [address] Radiation Oncology 11/16/21 Taxicab Coordinator Relationship Specialty Start Date End Date Yang Bridges MD [address] [place] [address] PCP - General 05/20/07 Og Fry MD [address] [place] [address] Radiation Oncology 11/16/21 Taxicab Coordinator Relationship Specialty Start Date End Date Yang Bridges MD [address] [place] [address] PCP - General 05/20/07 Og Fry MD [address] [place] [address] Radiation Oncology 11/16/21 Taxicab Coordinator Relationship Specialty Start Date End Date Yang Bridges MD [address] [place] [address] PCP - General 05/20/07 Og Fry MD [address] [place] [address] Radiation Oncology 11/16/21 Taxicab Coordinator Relationship Specialty Start Date End Date Yang Bridges MD [address] [place] [address] PCP - General 05/20/07 Og Fry MD [address] [place] [address] Radiation Oncology 11/16/21 Taxicab Coordinator Relationship Specialty Start Date End Date Yang Bridges MD [address] [place] [address] PCP - General 05/20/07 Og Fry MD [address] [place] [address] Radiation Oncology 11/16/21 Taxicab Coordinator Relationship Specialty Start Date End Date Yang Bridges MD [address] [place] [address] PCP - General 05/20/07 Og Fry MD [address] [place] [address] Radiation Oncology 11/16/21 Taxicab Coordinator Relationship Specialty Start Date End Date Yang Bridges MD [address] [place] [address] PCP - General 05/20/07 Og Fry MD [address] [place] [address] Radiation Oncology 11/16/21 Taxicab Coordinator Relationship Specialty Start Date End Date Yang Bridges MD [address] [place] [address] PCP - General 05/20/07 Og Fry MD [address] [place] [address] Radiation Oncology 11/16/21 Taxicab Coordinator Relationship Specialty Start Date End Date Yang Bridges MD [address] [place] [address] PCP - General 05/20/07 Og Fry MD [address] [place] [address] Radiation Oncology 11/16/21 Taxicab Coordinator Relationship Specialty Start Date End Date Yang Bridges MD [address] [place] [address] PCP - General 05/20/07 Og Fry MD [address] [place] [address] Radiation Oncology 11/16/21 Taxicab Coordinator Relationship Specialty Start Date End Date Yang Bridges MD [address] [place] [address] PCP - General 05/20/07 Og Fry MD [address] [place] [address] Radiation Oncology 11/16/21 Taxicab Coordinator Relationship Specialty Start Date End Date Yang Bridges MD [address] [place] [address] PCP - General 05/20/07 Og Fry MD [address] [place] [address] Radiation Oncology 11/16/21 Taxicab Coordinator Relationship Specialty Start Date End Date Yang Bridges MD [address] [place] [address] PCP - General 05/20/07 Og Fry MD [address] [place] [address] Radiation Oncology 11/16/21 Taxicab Coordinator Relationship Specialty Start Date End Date Yang Bridges MD [address] [place] [address] PCP - General 05/20/07 Og Fry MD [address] [place] [address] Radiation Oncology 11/16/21 Taxicab Coordinator Relationship Specialty Start Date End Date Yang Bridges MD [address] [place] [address] PCP - General 05/20/07 Og Fry MD [address] [facility] [place] [place] [address] Radiation Oncology 11/16/21 Taxicab Coordinator Relationship Specialty Start Date End Date Yang Bridges MD [address] [place] [address] PCP - General 05/20/07 Og Fry MD [address] [facility] [place] [address] Radiation Oncology 11/16/21 Herminia Lowry, whip operatorBusiness Objects Developer [facility] 06/04/22 Taxicab Coordinator Relationship Specialty Start Date End Date Yang Bridges MD [address] [place] [address] PCP - General 05/20/07 Og Fry MD [address] [place] [address] Radiation Oncology 11/16/21 Herminia Lowry, whip operatorBusiness Objects Developer [facility] 06/04/22 Taxicab Coordinator Relationship Specialty Start Date End Date Yang Bridges MD [address] [place] [address] PCP - General 05/20/07 Og Fry MD [address] [place] [address] Radiation Oncology 11/16/21 Herminia Lowry, whip operatorBusiness Objects Developer [facility] 06/04/22 Taxicab Coordinator Relationship Specialty Start Date End Date Yang Bridges MD [address] [place] [address] PCP - General 05/20/07 Og Fry MD [address] [place] [address] Radiation Oncology 11/16/21 Herminia Lowry, whip operatorBusiness Objects Developer [facility] 06/04/22 Taxicab Coordinator Relationship Specialty Start Date End Date Yang Bridges MD [address] [facility] [address]k [address] [place] [address] [phone] PCP - General Family Medicine 02/28/16 Taxicab Coordinator Relationship Specialty Start Date End Date Yang Bridges MD [address] [place] [address] PCP - General 05/20/07 Og Fry MD [address] [place] [address] Radiation Oncology 11/16/21 Herminia Lowry RN Business Objects Developer [facility] 06/04/22 Taxicab Coordinator Relationship Specialty Start Date End Date Yang Bridges MD [address] [place] [address] PCP - General 05/20/07 Og Fry MD [address] [place] [address] Radiation Oncology 11/16/21 Herminia Lowry whip operatorBusiness Objects Developer [facility] 06/04/22 Taxicab Coordinator Relationship Specialty Start Date End Date Yang Bridges MD [address] [place] [address] PCP - General 05/20/07 Og Fry MD [address] [place] [address] Radiation Oncology 11/16/21 Herminia Lowry, whip operatorBusiness Objects Developer [facility] 06/04/22 Taxicab Coordinator Relationship Specialty Start Date End Date Yang Bridges MD [address] [place] [address] PCP - General Family Medicine 02/28/16 Taxicab Coordinator Relationship Specialty Start Date End Date Yang Bridges MD [address] [place] [address] PCP - General Family Medicine 02/28/16 Taxicab Coordinator Relationship Specialty Start Date End Date Yang Bridges MD [address] [place] [address] PCP - General Family Medicine 02/28/16 Taxicab Coordinator Relationship Specialty Start Date End Date Yang Bridges MD [address] [place] [address] PCP - General 05/20/07 Og Fry MD [address] [place] [address] Radiation Oncology 11/16/21 Herminia Lowry RN Business Objects Developer [facility] 06/04/22 Taxicab Coordinator Relationship Specialty Start Date End Date Yang Bridges MD [address] [place] [address] PCP - General 05/20/07 Og Fry MD [address] [place] [address] Radiation Oncology 11/16/21 Herminia Lowry RN Business Objects Developer [facility] 06/04/22 Taxicab Coordinator Relationship Specialty Start Date End Date Yang Bridges MD [address] [place] [address] PCP - General 05/20/07 Og Fry MD [address] [place], [place] [id number] Radiation Oncology 11/16/21 Eliana Casillas, whip operatorBusiness Objects Developer 06/04/22 Taxicab Coordinator Relationship Specialty Start Date End Date Yang Bridges MD [address] [place] [address] PCP - General 05/20/07 Og Fry MD [address] [place], [place] [phone] Radiation Oncology 11/16/21 Eliana Casillas, whip operatorBusiness Objects Developer 06/04/22 Taxicab Coordinator Relationship Specialty Start Date End Date Yang Bridges MD [address] [place] [address] PCP - General 05/20/07 Og Fry MD [address] [place], [place] [id number] Radiation Oncology 11/16/21 Herminia Lowry, whip operatorBusiness Objects Developer Family [facility] 06/04/22 Eliana Casillas RN Business Objects Developer 06/04/22 Taxicab Coordinator Relationship Specialty Start Date End Date Yang Bridges MD [address] [place] [address] PCP - General 05/20/07 Og Fry MD [address] [place], [place] [id number] Radiation Oncology 11/16/21 Eliana Casillas, whip operatorBusiness Objects Developer 06/04/22 Taxicab Coordinator Relationship Specialty Start Date End Date Yang Bridges MD [address] [place], [place] 393331 PCP - General 05/20/07 Og Fry MD [address] [place] [address] Radiation Oncology 11/16/21 Eliana Casillas, whip operatorBusiness Objects Developer 06/04/22 Taxicab Coordinator Relationship Specialty Start Date End Date Yang Bridges MD [address] [place], [place] [id number] PCP - General 05/20/07 Og Fry MD [address] [place], [place] [id number] Radiation Oncology 11/16/21 Eliana Casillas, whip operatorBusiness Objects Developer 09/08/22 Taxicab Coordinator Relationship Specialty Start Date End Date Yang Bridges MD [address] [place], [place] [address]32251 PCP - General 05/20/07 Og Fry MD [address] [place], [place] [id number] Radiation Oncology 11/16/21 Eliana Casillas, whip operatorBusiness Objects Developer 09/08/22 Taxicab Coordinator Relationship Specialty Start Date End Date Yang Bridges MD [address] [facility] [address] [place] [address] PCP - General Family Medicine 02/28/16 Taxicab Coordinator Relationship Specialty Start Date End Date Yang Bridges MD [address] [place] [address] PCP - General 05/20/07 Og Fry MD [address] [place] [address] Radiation Oncology 11/16/21 Eliana Casillas, whip operatorBusiness Objects Developer 09/08/22 Taxicab Coordinator Relationship Specialty Start Date End Date Yang Bridges MD [address] [facility] [address] [place] [address] PCP - General Family Medicine 02/28/16 Taxicab Coordinator Relationship Specialty Start Date End Date Yang Bridges MD [address] [place] [address] PCP - General 05/20/07 Og Fry MD [address] [place] [address] Radiation Oncology 11/16/21 Eliana Casillas, whip operatorBusiness Objects Developer 09/08/22 Taxicab Coordinator Relationship Specialty Start Date End Date Yang Bridges MD [address] [facility] [address] [place] [address] PCP - General Family Medicine 02/28/16 Taxicab Coordinator Relationship Specialty Start Date End Date Yang Bridges MD [address] [place] [address] PCP - General 05/20/07 Og Fry MD [address] [place] [address] Radiation Oncology 11/16/21 Eliana Casillas, whip operatorBusiness Objects Developer 09/08/22 Taxicab Coordinator Relationship Specialty Start Date End Date Yang Bridges MD [address] [place] [address] PCP - General 05/20/07 Og Fry MD [address] [place] [address] Radiation Oncology 11/16/21 Eliana Casillas, whip operatorBusiness Objects Developer 09/08/22 [facility] [address] [place] [address] Pain Management Anesthesiology 02/18/23 Taxicab Coordinator Relationship Specialty Start Date End Date Yang Bridges MD [address] [place] [address] PCP - General 05/20/07 Og Fry MD [address] [place] [address] Radiation Oncology 11/16/21 Eliana Casillas RN Business Objects Developer 09/08/[address] [address] Pain Management Anesthesiology 02/18/23 Taxicab Coordinator Relationship Specialty Start Date End Date Yang Bridges MD [address] [place] [address] PCP - General 05/20/07 Og Fry MD [address] [place] [address] Radiation Oncology 11/16/21 Eliana Casillas, whip operatorBusiness Objects Developer 09/08/22 Fredi Perez [place] [address] [place] [address] Pain Management Anesthesiology 02/18/23 Taxicab Coordinator Relationship Specialty Start Date End Date Yang Bridges MD [address] [place] [address] PCP - General 05/20/07 Og Fry MD [address] [place] [address] Radiation Oncology 11/16/21 Eliana Casillas, whip operatorBusiness Objects Developer 09/08/22 Fredi Perez [place] [address] [place] [address] Pain Management Anesthesiology 02/18/23 Taxicab Coordinator Relationship Specialty Start Date End Date Yang Bridges MD [address] [place] [address] PCP - General 05/20/07 Og Fry MD [address] [place] [address] Radiation Oncology 11/16/21 Eliana Casillas, whip operatorBusiness Objects Developer 09/08/22 Fredi Perez [address] [place] [address] Pain Management Anesthesiology 02/18/23 Taxicab Coordinator Relationship Specialty Start Date End Date Yang Bridges MD [address] [place] [address] PCP - General 05/20/07 Og Fry MD [address] [place] [address] Radiation Oncology 11/16/21 Fredi Perez [place] [address] [place] [address] Pain Management Anesthesiology 02/18/23 Jose Pickering, TARI [address] [place] [address] Business Objects Developer Unspecified 04/21/23 Taxicab Coordinator Relationship Specialty Start Date End Date Yang Bridges MD [address] [place] [address] PCP - General 05/20/07 Og Fry MD [address] [place] [address] Radiation Oncology 11/16/21 Fredi Perez [place] [address] [place] [address] Pain Management Anesthesiology 02/18/23 Jose Pickering, RN [address] [place] [address] Business Objects Developer Unspecified 04/21/23 Taxicab Coordinator Relationship Specialty Start Date End Date Yang Bridges MD [address] [place] [address] PCP - General 05/20/07 Og Fry MD [address] [place] [address] Radiation Oncology 11/16/21 Ana Fredi [place] [address] [place] [address] Pain Management Anesthesiology 02/18/23 Jose Pickering, TARI [address] [place] [address] Business Objects Developer Unspecified 04/21/23 Taxicab Coordinator Relationship Specialty Start Date End Date Yang Bridges MD [address] [place] [address] PCP - General 05/20/07 Og Fry MD [address] [place] [address] Radiation Oncology 11/16/21 [facility] [place] [place] [address] [place] [address] Pain Management Anesthesiology 02/18/23 Jose Pickering, TARI [address] [place] [address] Business Objects Developer Unspecified 04/21/23 Taxicab Coordinator Relationship Specialty Start Date End Date Yang Bridges MD [address] [place] [address] PCP - General 05/20/07 Og Fry MD [address] [place] [address] Radiation Oncology 11/16/21 Fredi Perez [address] [place] [address] Pain Management Anesthesiology 02/18/23 Jose Pickering RN [address] [place] [address] Business Objects Developer Unspecified 04/21/23 Taxicab Coordinator Relationship Specialty Start Date End Date Yang Bridges MD [address] [place] [address] PCP - General 05/20/07 Og Fry MD [address] [place] [address] Radiation Oncology 11/16/21 Fredi Perez [address] [place] [address] Pain Management Anesthesiology 02/18/23 Jose Pickering RN [address] [place], [place] [id number] Business Objects Developer Unspecified 04/21/23 Taxicab Coordinator Relationship Specialty Start Date End Date Yang Bridges MD [address] [place] [address] PCP - General 05/20/07 Og Fry MD [address] [place] [address] Radiation Oncology 11/16/21 Fredi Perez MD [address] [place] [address] Pain Management Anesthesiology 02/18/23 Jose Pickering, RN [address] [place] [address] Business Objects Developer Unspecified 04/21/23 Taxicab Coordinator Relationship Specialty Start Date End Date Yang Bridges MD [address] [place] [address] PCP - General 05/20/07 Og Fry MD [address] [place] [address] Radiation Oncology 11/16/21 Fredi Perez MD [address] [place] [address] Pain Management Anesthesiology 02/18/23 Jose Pickering RN [address] [place] [address] Business Objects Developer Unspecified 04/21/23 Taxicab Coordinator Relationship Specialty Start Date End Date Yang Bridges MD [address] [place] [address] PCP - General 05/20/07 Og Fry MD [address] [place] [address] Radiation Oncology 11/16/21 Fredi Perez MD [address] [place] [address] Pain Management Anesthesiology 02/18/23 Jose Pickering RN [address] [place] [address] Business Objects Developer Unspecified 04/21/23 [place] [address] [place] [address] Hematology/Oncology 12/13/21 Janelle Jones, RN Specialty Programming Coordinator Hematology/Oncology 09/10/23 Taxicab Coordinator Relationship Specialty Start Date End Date Yang Bridges MD [address] [place] [address] PCP - General 05/20/07 Og Fry MD [address] [place], [place] [id number] Radiation Oncology 11/16/21 Ferdi Perez MD [address] [place] [address] Pain Management Anesthesiology 02/18/23 Jose Pickering, RN [address] [place], [place] [id number] Business Objects Developer Unspecified 04/21/23 [place] [address] [place] [address] Hematology/Oncology 12/13/21 Janelle Jones, RN Specialty Programming Coordinator Hematology/Oncology 09/10/23 Taxicab Coordinator Relationship Specialty Start Date End Date Yang Bridges MD [address] [place] [address] PCP - General 05/20/07 Og Fry MD [address] [place], [place] [id number] Radiation Oncology 11/16/21 Fredi Perez MD [address] [place], [place] [id number] Pain Management Anesthesiology 02/18/23 Jose Pickering, RN [address] [place] [address] Business Objects Developer Unspecified 04/21/23 [place] [address] [place] [id number] Hematology/Oncology 12/13/21 Janelle Jones RN Specialty Programming Coordinator Hematology/Oncology 09/10/23 FOR RECORDS PERTAINING TO PATIENTS WHO ARE OR HAVE BEEN ENROLLED IN A CHEMICAL DEPENDENCY/SUBSTANCEABUSE PROGRAM, SOME INFORMATION MAY BE OMITTED. This clinical summary was aggregated from multiple sources. Caution should be exercised in using it in the provision of clinical care. This summary normalizes information from multiple sources, and as a consequence, information in this document may materially change the coding, format and clinical context of patient data. In addition, data may be omitted in some cases. CLINICAL DECISIONS SHOULD BE BASED ON THE PRIMARY CLINICAL RECORDS. [facility]. provides no warranty or guarantee of the accuracy or completeness of information in this document.
== END | disposition home or self-care (01) ==
PROVIDERS: PCP Family Medicine; Referring Provider Anesthesiology Pain Medicine; Visit Provider Anesthesiology Pain Medicine
DX: M85.88 Other specified disorders of bone density and structure, other site (principal); W19.XXXA Unspecified fall, initial encounter
CPT/HCPCS: 72070

== ENCOUNTER → 2024-04-19 | Outpatient (CLI) | payer MEDICARE, MEDICAID, SELFPAY ==
--- NOTE | 2024-04-19 15:22 | RAD_ITS ---
STUDY: X-RAY - LUMBAR SPINE REASON FOR EXAM: Female, 68 years old. Radiating low back pain TECHNIQUE: 3 view(s) of the lumbar spine were obtained. COMPARISON: 07/19/2022 FINDINGS: Normal lumbar lordosis. There is no substantial scoliosis. There is a normal alignment of the vertebrae. There is diffuse demineralization with multi-level endplate spondylosis. There is multi-level degenerative disc disease with multi-level disc space narrowing. There is no demonstrated acute fracture, chronic compression fractures noted at T12 and L1. There is atherosclerotic calcification of the abdominal aorta without a demonstrated aneurysm. RAD/Lumbar Spine 2 or 3 Views IMPRESSION: Degenerative changes of the spine, as detailed above. Electronically Signed: Gerald Moon MD at 23:06 EDT ,
--- NOTE | 2024-04-19 15:25 | RAD_ITS ---
STUDY: X-RAY - SACRUM/COCCYX REASON FOR EXAM: Female, 68 years old. SACROILIITIS TECHNIQUE: 3 view(s) of the sacrum and coccyx were obtained. COMPARISON: None. FINDINGS: Bones are diffusely demineralized. There is degenerative arthrosis of the bilateral sacroiliac joints. There is demineralization of the sacral ala. Normal sacrococcygeal junction with a normal angulation. There is demineralization of the coccygeal segments. Presacral soft tissue suggests previous cystectomy. RAD/Sacrum-Coccyx min 2 Views IMPRESSION: Profound osteopenia with degenerative arthrosis Electronically Signed: Gerald Moon MD at 23:08 EDT ,
== END | disposition home or self-care (01) ==
LOC: RAD 15:05
PROVIDERS: PCP Family Medicine; Referring Provider Anesthesiology Pain Medicine; Visit Provider Anesthesiology Pain Medicine
DX: M51.37 Other intervertebral disc degeneration, lumbosacral region (principal); M46.1 Sacroiliitis, not elsewhere classified
CPT/HCPCS: 72100; 72220

== ENCOUNTER → 2024-06-22 | Outpatient (CLI) | payer MEDICARE, MEDICAID, SELFPAY ==
[2024-06-22 16:54] LABS: Amphetamine Urine VISTA NEGATIVE (<1000 ng/mL); Barbiturate Urine VISTA NEGATIVE (< 200 ng/mL); Benzodiazepine Urine VISTA NEGATIVE (< 200 ng/mL); Cocaine Urine VISTA NEGATIVE (< 300 ng/mL); Ecstacy Urine VISTA POSITIVE (< 500 ng/mL); Methadone Urine VISTA NEGATIVE (< 300 ng/mL); PCP Urine VISTA NEGATIVE (< 25 ng/mL); THC Urine VISTA NEGATIVE (< 50 ng/mL); Vista UDS pH Range 4
== END | disposition home or self-care (01) ==
PROVIDERS: PCP Family Medicine; Referring Provider Anesthesiology Pain Medicine; Visit Provider Anesthesiology Pain Medicine
DX: F11.20 Opioid dependence, uncomplicated (principal)
CPT/HCPCS: 80307

== ENCOUNTER → 2025-08-24 | Outpatient (CLI) | payer MEDICAID, SELFPAY ==
[2025-08-24 15:23] LABS: Mucous, Urine 0 SEEN /hpf (<or=2+)
[2025-08-24 17:23] LABS: Color, Urine Yellow (Yellow); Glucose, Dipstick Normal (Normal); Ketone-Dipstick Negative (Negative); Leukocyte Esterase-Dipstick 100 /ul (Negative); Nitrite-Dipstick Negative (Negative); Occult Blood-Urine 10 /ul (Negative); Protein-Dipstick Negative (Negative); Specific Gravity, Urine 1.015 (1.002-1.030); Urine Bilirubin Dipstick Negative (Negative)
[2025-08-24 17:48] LABS: Red Blood Cells-Urine 0-5 SEEN /hpf (0-5); Squamous Epithelial Cells - UA 0-5 SEEN /hpf (5-10)
== END | disposition home or self-care (01) ==
LOC: LABSPEC 15:21
PROVIDERS: PCP Family Medicine; Visit Provider Nurse Practitioner Family
DX: N30.01 Acute cystitis with hematuria (principal)
CPT/HCPCS: 81001; 87077; 87086; 87088; 87186